=== PATIENT | male | born 1965 | race Caucasian/White ===

== ENCOUNTER 2024-11-21 00:49 | Emergency (ER) | payer MEDICAID, SELFPAY ==
[2024-11-21 00:49] VITALS: BMI 36.2
[2024-11-21 02:34] VITALS: BP 119/84; PULSE 75; RESP 17; TEMP 36.5; O2SAT 94
--- NOTE | 2024-11-21 02:59 | EDRME_ITS ---
Rapid Medical Screening Exam RME Arrival date/time: 11/21/24 00:49 Chief Complaint: Abdominal Pain Time Seen by Provider: 11/21/24 02:36 Vital signs: Vital Signs Temperature 97.7 F 11/21/24 02:34 Pulse Rate 75 11/21/24 02:34 Respiratory Rate 17 11/21/24 02:34 Blood Pressure 119/84 11/21/24 02:34 Pulse Oximetry (%) 94 L 11/21/24 02:34 Oxygen Delivery Method Room Air 11/21/24 02:34 Vital signs reviewed by provider: Yes RME Narrative: 59-year-old male presents to the ED with a complaint of abdominal swelling, nausea, right upper quadrant abdominal pain, lower extremity edema. He has a history of hepatitis. He was partially treated greater than 15 years ago but had to stop due to other infections including necrotizing fasciitis of the right upper extremity. 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 I have greeted and performed a focused initial assessment of this patient. A comprehensive ED assessment and evaluation of the patient, analysis of all test results, and completion of the medical decision making process will be conducted by additional ED providers.
--- NOTE | 2024-11-21 03:01 | XR_ITS ---
Examination: CT abdomen with intravenous contrast CT pelvis with intravenous contrast 2-D coronal reconstructions 2-D sagittal reconstructions Date and time of exam:November 21, 2024 0441 hours INDICATIONS: Onset generalized abdominal pain today COMPARISON: December 04, 2012. CTDI: vol (mGy) 19.5 DLP: (mGycm) 1161 Technique: Multiple axial sections of the abdomen and pelvis have been obtained. 64 slice high-resolution scanner used. 3 mm axial sections have been obtained, post intravenous injection 60 cc Isovue 370 2-D sagittal, coronal reconstructions obtained. Low dose protocols were performed. One or more of the following dose reduction techniques were used; automated exposure control, adjustment of the mA and/or KV according to patient size, use of iterative reconstruction technique. Findings: Liver is irregular in contour with fatty infiltration Suspicious for gallbladder wall thickening Spleen is not enlarged No pancreatic mass Mild renal parenchymal scar formation 25 mm fat-containing umbilical hernia Normal appendix No bowel obstruction Mild urinary bladder wall thickening No significant prostatomegaly Small fat-containing inguinal hernias IMPRESSION: Recommend hepatobiliary sonography follow-up to exclude cholecystitis Primary hepatocellular disease Mild cystitis pattern
--- NOTE | 2024-11-21 03:03 | XR_ITS ---
Examination: PA lateral chest 2 views TECHNIQUE: Upright PA and lateral chest 2 views Date and time: November 21, 2024 0529 hours Comparison November 28, 2023 INDICATION: Chest pain today. FINDINGS: Normal heart size The focal parenchymal disease in the right lower lobe noted on the November 28, 2023 exam is no longer identified No pneumonia or pulmonary edema currently Mild hyperexpansion Blunting of the left posterior costophrenic angle on the lateral view IMPRESSION: Mild hyperexpansion Suspicious for small left pleural effusion
[2024-11-21 03:46] LABS: Basophils # (Auto) 0.1 Thou/mm3 (0.0-0.2); Basophils % (Auto) 1 % (0-2.5); Eosinophils # (Auto) 0.2 Thou/mm3 (0.0-0.5); Eosinophils % (Auto) 2 % (0-10); Hematocrit 48.8 % (41.0-53.0); Hemoglobin 17.1 g/dL (13.5-16.0); Immature Granulocytes % (Auto) 0 % (0-0); Immature Granulocytes Auto 0.03 Thou/mm3 (0.00-0.00); Lymphocytes # (Auto) 2.8 Thou/mm3 (1.0-4.8); Lymphocytes % (Auto) 29 % (10-50); Mean Corpuscular Hemoglobin 32.9 pg (25.0-35.0); Mean Corpuscular Volume 94 fL (80-100); Monocytes # (Auto) 0.7 Thou/mm3 (0.0-0.8); Monocytes % (Auto) 7 % (0-12); Neutrophils # (Auto) 5.9 Thou/mm3 (1.8-7.7); Neutrophils % (Auto) 61 % (37-80); Nucleated Red Blood Cell % 0 /100 WBC (0); Platelet Count 380 Thou/mm3 (140-440); RDW Standard Deviation 43.9 fL (35.1-43.9); White Blood Count 9.6 Thou/mm3 (3.8-10.6)
[2024-11-21 04:00] VITALS: BP 136/94; PULSE 78; RESP 16; TEMP 36.4; O2SAT 94
[2024-11-21 04:03] LABS: Collection Type, Urine Clean Catch
[2024-11-21 04:10] LABS: Alanine Aminotransferase 24 U/L (10-49); Albumin, Serum 4.5 gm/dL (3.4-4.8); Albumin/Globulin Ratio 1.2 (1.2-2.2); Alkaline Phosphatase 100 U/L (46-116); Amylase 54 U/L (30-118); Anion Gap 9 (7-16); Aspartate Amino Transferase 27 U/L (0-34); B-Type Natriuretic Peptide < 20 pg/mL (0-100); BUN/Creatinine Ratio 7 Ratio (12-20); Bilirubin,Total 0.6 mg/dL (0.3-1.2); Blood Urea Nitrogen 6 mg/dL (9-23); Carbon Dioxide 25.3 mMol/L (20.0-31.0); Chloride 101 mMol/L (98-107); Creatinine (Component) 0.9 mg/dL (0.6-1.3); Globulin 3.7 gm/dL (2.3-3.5); Glucose 114 mg/dL (74-106); Lipase 25 U/L (12-53); Osmolality,Calculated 268 (275-295); Potassium 4.5 mMol/L (3.4-5.1); Sodium 135 mMol/L (136-145); Total Protein 8.2 gm/dL (5.7-8.2); eGFR > 60 See Note
[2024-11-21 04:12] LABS: Bilirubin,Urine Negative (Negative); Blood,Urine Negative (Negative); Clarity,Urine Clear (Clear/Hazy); Color,Urine Yellow (Lt Yel-Yel); Glucose, Urine Negative (Negative); Ketones,Urine Negative (Negative); Leukocyte Esterase,Urine Negative (Negative); Nitrite,Urine Negative (Negative); PH,Urine 5.5 (5.0-7.0); Protein,Urine Negative (Neg - Trace); RBC,Urine 1 /hpf (0-3); Specific Gravity,Urine 1.025 (1.001-1.035); Squamous Epithelial Cell,Urine < 1 /hpf (0-5); Urobilinogen,Urine Negative mg/dL (0.0-1.0); WBC,Urine 2 /hpf (0-5)
--- NOTE | 2024-11-21 04:20 | PC.NURSE ---
ASSUMED CARE OF PATIENT, PT ALERT/ORIENTED AND IN NO ACUTE DISTRESS, PT C/O OF INCREASED ABDOMINAL PAIN, SWELLING, AND NAUSEA. HX HEP C, PT APPEARS TO BE SOMEWHAT JAUNDICE, PT STATES HE IS RESTING COMFORTABLY NOW WITH MOTHER AT BEDSIDE, PT WAITING FOR CT RESULTS AND REVIEW BY ER MD, WILL CONTINUE WITH PLAN OF CARE
[2024-11-21 05:01] VITALS: BP 140/95; PULSE 75; RESP 18; O2SAT 95
--- NOTE | 2024-11-21 05:30 | PRELIM_ITS ---
CT scan of the abdomen and pelvis with intravenous contrast (axial sections with sagittal and coronal reformats) November 21, 2024 at 0441 hours Clinical History: Abdominal pain. Comparison: No prior study is available for comparison. Findings: The lung bases are clear. The pancreas, spleen, kidneys and adrenals are unremarkable. Mild irregular liver margins. The gallbladder is distended with prominent matos. No evidence of bowel obstruction. The appendix is within normal limits. There is no mesenteric or retroperitoneal adenopathy. The urinary bladder is unremarkable. There is no free fluid or free air. No acute fractures. Mild anterolisthesis of L5. Left femoral hardware is noted. Vascular calcifications. Impression: Distended gallbladder with prominent matos, if acute cholecystitis is clinically suspected consider correlation with right upper quadrant ultrasound. Possible cirrhosis. Report Electronically Signed By: Kaveh Norris 11/21/2024 5:30:48 AM [EST]
--- NOTE | 2024-11-21 06:29 | EDNOTE_ITS ---
ED General RME/HPI General Chief complaint: Abdominal Pain Stated complaint: SWELLING IN ABDOMEN AND FEET Time Seen by Provider: 11/21/24 02:36 Arrival date/time: 11/21/24 00:49 Limitations: no limitations RME / HPI RME / HPI narrative: 59-year-old male presents to the ED with a complaint of abdominal swelling, nausea, right upper quadrant abdominal pain, lower extremity edema. He has a history of hepatitis. He was partially treated greater than 15 years ago but had to stop due to other infections including necrotizing fasciitis of the right upper extremity. 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 I have greeted and performed a focused initial assessment of this patient. A comprehensive ED assessment and evaluation of the patient, analysis of all test results, and completion of the medical decision making process will be conducted by additional ED providers. DR. BLOUNT MAIN ED EVALUATION: 59 year old male presents to the Emergency Department with complaint of right upper abdominal pain onset 2-3 days ago. Pain is described as aching and rated moderate in severity. Patient also reports bilateral leg swelling. PMHx: Hepatitis C. Social Hx: Former heroin abuse, quit years ago . Related Data Home Medications ?Medication ?Instructions ?Recorded ?Confirmed methadone 10 mg/mL oral concentrate 80 mg PO QDAY 09/2911/29/23 amitriptyline 25 mg tablet 25 mg PO QDAY 11/29/2307/23 Previous Rx's ?Medication ?Instructions ?Recorded albuterol sulfate 90 mcg/actuation 2 inh inhalation Q4 H PRN shortness 11/29/23 aerosol inhaler of breath or wheezing #8.5 g willa amoxicillin 875 mg-potassium 1 tab PO BID #20 tabs 07/23 clavulanate 125 mg tablet Allergies Allergy/AdvReac Type Severity Reaction Status Date / Time No Known Allergies Allergy Verified 11/28/23 07:06 Review of Systems Review of Systems Systems Reviewed: All systems reviewed, normal except as documented Past Medical History Past Medical History GASTROINTESTINAL: Positive Gastrointestinal Disorders (LIVER DZ), Hepatitis (HEP C) and Pancreatitis MUSCULOSKELETAL: Positive Fractures PSYCHO/SOCIAL: Positive Recreational Drug Use Social History SMOKING STATUS: Never smoker SUBSTANCE USE: former substance user and heroin ALCOHOL: Never ED Exam General Limitations: Present no limitations General appearance: Present alert and in no apparent distress Head Head exam: Present atraumatic, normocephalic and normal inspection Eye Eye exam: Present normal appearance, PERRL and EOMI ENT ENT exam: Present normal exam, normal oropharynx and mucous membranes moist Neck Neck exam: Present normal inspection, full ROM and trachea midline Chest Chest inspection: Present normal inspection and symmetric chest wall rise Respiratory Respiratory exam: Present normal lung sounds bilaterally Cardiovascular Cardiovascular exam: Present regular rate, normal rhythm and normal heart sounds Abdominal Exam Abdominal exam: Present distention, tenderness (slight tenderness in the right upper quadrant) and normal bowel sounds; Absent rebound Extremities Exam Extremities exam: Present normal inspection, full ROM and pedal edema (1+) Back Exam Back exam: Present normal inspection and full ROM Neurological Exam Neurological exam: Present alert, oriented X3 and CN II-XII intact Psychiatric Psychiatric exam: Present normal affect and normal mood Skin Skin exam: Present warm, dry, intact and normal color Course Quality Measures none Orders Category Date Time Status CT Screening NOW Care 11/21/24 03:[address] Screening X1 Care 11/21/24 03:01 Active IV [Insert IV] NOW Care 11/21/24 03:04 Active NPO STAT Care 11/21/24 03:[address] abdomen pelvis w con Stat Exams 11/21/24 03:01 Completed US gall bladder Stat Exams 11/21/24 07:36 Completed XR chest 2V Stat Exams 11/21/24 03:03 Completed Amylase Stat Lab 11/21/24 03:26 Completed BNP [B-Type Natriuretic Peptide] Stat Lab 11/21/24 03:26 Completed CBC Stat Lab 11/21/24 03:26 Completed Comprehensive Metabolic Panel Stat Lab 11/21/24 03:26 Completed Lipase Stat Lab 11/21/24 03:26 Completed Urinalysis Stat Lab 11/21/24 03:45 Completed Famotidine Inj [Pepcid Inj] Med 11/21/24 07:38 Discontinued 20 mg IVP X1 ONE Ketorolac Inj [Toradol Inj] Med 11/21/24 07:38 Discontinued 15 mg IVP X1 ONE Milk Of Magnesia Susp [Mom Susp] Med 11/21/24 07:38 Discontinued 30 ml PO X1 ONE Vital Signs Vital signs: Vital Signs Temperature 97.7 F 11/21/24 02:34 Pulse Rate 75 11/21/24 02:34 Respiratory Rate 17 11/21/24 02:34 Blood Pressure 119/84 11/21/24 02:34 Pulse Oximetry (%) 94 L 11/21/24 02:34 Oxygen Delivery Method Room Air 11/21/24 02:34 Discharge Plan Plan Patient Disposition: HOME (Self Care) Patient condition on transfer: Stable Prescriptions/Referrals Prescriptions/Med Rec: No Action methadone 10 mg/mL Concentrate 80 mg PO QDAY amitriptyline 25 mg tablet 25 mg PO QDAY amoxicillin-pot clavulanate 875-125 mg tablet 1 tab PO BID Qty: 20 0RF albuterol sulfate 90 mcg/actuation HFA aerosol inhaler 2 inh inhalation Q4H PRN (Reason: shortness of breath or wheezing) Qty: 8.5 0RF Referrals: Alberto Meyer MD [Primary Care Provider] - In 1 week Problem List Clinical Impression: Abdominal pain Patient/Caregiver Discharge Instructions Education Materials: Abdominal Pain Additional Instructions: Please follow-up with your primary care physician within a week, consider referral GI specialist. Return to the Emergency Department as needed. Print Language: Turkmen Stand Alone Forms: Mariann Award Info., Patient Portal Info Letter [facility] Narrative [facility] hospital course: I, Meri Lelsie am scribing for and in the presence of Dr. Blount. US was negative, patient will be discharged. Discussed with patient to consider a GI specialist referral. Clinical Information Provided by patient Medical Records Reviewed [facility] Meds/Rx Considered, not Ordered None Labs/Rad/Tests considered, not Ordered None Chronic Illness/Social Conditions Add or document further as needed: PMHx: Hepatitis C. Social Hx: Former heroin abuse, quit years ago . Imaging Imaging interpretation: interpreted by mo Provider imaging interpretation(s): US is negative. Radiology reports / interpretation(s): Procedure(s): CT abdomen pelvis w con Accession Number(s): [id number] cc: Alberto Meyer MD; Zenon Bernstein MD; Maty Tolentino PA-C~ Examination: CT abdomen with intravenous contrast CT pelvis with intravenous contrast 2-D coronal reconstructions 2-D sagittal reconstructions Date and time of exam:November 21, 2024 0441 hours INDICATIONS: Onset generalized abdominal pain today COMPARISON: December 04, 2012. CTDI: vol (mGy) 19.5 DLP: (mGycm) 1161 Technique: Multiple axial sections of the abdomen and pelvis have been obtained. 64 slice high-resolution scanner used. 3 mm axial sections have been obtained, post intravenous injection 60 cc Isovue 370 2-D sagittal, coronal reconstructions obtained. Low dose protocols were performed. One or more of the following dose reduction techniques were used; automated exposure control, adjustment of the mA and/or KV according to patient size, use of iterative reconstruction technique. Findings: Liver is irregular in contour with fatty infiltration Suspicious for gallbladder wall thickening Spleen is not enlarged No pancreatic mass Mild renal parenchymal scar formation 25 mm fat-containing umbilical hernia Normal appendix No bowel obstruction Mild urinary bladder wall thickening No significant prostatomegaly Small fat-containing inguinal hernias IMPRESSION: Recommend hepatobiliary sonography follow-up to exclude cholecystitis Primary hepatocellular disease Mild cystitis pattern Dictated By: Zenon Bernstein MD Procedure(s): XR chest 2V Accession Number(s): [id number] cc: Alberto Meyer MD; Zenon Bernstein MD; Maty Tolentino PA-C~ Examination: PA lateral chest 2 views TECHNIQUE: Upright PA and lateral chest 2 views Date and time: November 21, 2024 0529 hours Comparison November 28, 2023 INDICATION: Chest pain today. FINDINGS: Normal heart size The focal parenchymal disease in the right lower lobe noted on the November 28, 2023 exam is no longer identified No pneumonia or pulmonary edema currently Mild hyperexpansion Blunting of the left posterior costophrenic angle on the lateral view IMPRESSION: Mild hyperexpansion Suspicious for small left pleural effusion Dictated By: Zenon Bernstein MD Procedure(s): US gall bladder Accession Number(s): [id number] cc: Atilio Blount MD; Alberto Meyer MD; Zenon Bernstein MD~ Examination: Abdomen sonogram, Limited Date and time of exam: November 21, 2024 0847 hrs. Indications: Right upper abdominal pain nausea vomiting beginning 4 days ago Technique: Real-time rai scale transabdominal sonographic images of the upper abdomen obtained. Findings: 3 cm gallstone Normal gallbladder wall Common bile duct enlarged 0.70 cm but no stones Pancreas obscured by bowel gas Liver 19.1 cm no liver lesions Normal hepatopedal portal venous flow Patent IVC Impression: Cholelithiasis, negative for cholecystitis No common bile duct stones noted Hepatomegaly no focal liver lesions Dictated By: Zenon Bernstein MD Medication Administration(s) Medication Administration History Discontinued Medications Famotidine (Famotidine Inj 10 Mg/Ml Vial 2 Ml) 20 mg IVP X1 ONE Stop: 11/21/24 07:39 Last Admin: 11/21/24 08:29 Dose: 20 mg Documented By: MARTHA Ketorolac Tromethamine (Ketorolac Inj 30 Mg/Ml Vial) 15 mg IVP X1 ONE Stop: 11/21/24 07:39 Last Admin: 11/21/24 08:33 Dose: 15 mg Documented By: MARTHA Magnesium Hydroxide (Milk Of Magnesia Susp 30 Ml Udc) 30 ml PO X1 ONE; Protocol Stop: 11/21/24 07:39 Last Admin: 11/21/24 08:30 Dose: 30 ml Documented By: MARTHA Diagnosis Differential diagnosis: gallstones, pancreatitis, gastritis Most likely dx, and/or detailed dx discussion: Abdominal pain Dispositon Disposition: Discharge Home
[2024-11-21 06:54] VITALS: BP 135/92; PULSE 68; RESP 18; O2SAT 94
--- NOTE | 2024-11-21 07:36 | XR_ITS ---
Examination: Abdomen sonogram, Limited Date and time of exam: November 21, 2024 0847 hrs. Indications: Right upper abdominal pain nausea vomiting beginning 4 days ago Technique: Real-time rai scale transabdominal sonographic images of the upper abdomen obtained. Findings: 3 cm gallstone Normal gallbladder wall Common bile duct enlarged 0.70 cm but no stones Pancreas obscured by bowel gas Liver 19.1 cm no liver lesions Normal hepatopedal portal venous flow Patent IVC Impression: Cholelithiasis, negative for cholecystitis No common bile duct stones noted Hepatomegaly no focal liver lesions
[2024-11-21 07:39] VITALS: BP 140/90; PULSE 67; RESP 19; TEMP 36.5; O2SAT 94
[2024-11-21] MEDS: FAMOTIDINE INJ 10 MG/ML VIAL 2 ML 20 MG IVP (08:29)
[2024-11-21] MEDS: Milk Of Magnesia Susp 30 ML UDC PO (08:30)
[2024-11-21] MEDS: KETOROLAC INJ 30 MG/ML VIAL 15 MG IVP (08:33)
--- NOTE | 2024-11-21 08:42 | PC.NURSE ---
PT TAKEN TO ULTRASOUND
[2024-11-21 11:50] VITALS: BP 150/89; PULSE 65; RESP 14; O2SAT 93
== END 2024-11-21 11:51 | disposition home or self-care (01) ==
PROVIDERS: Physician Assistant; Emergency Provider Emergency Medicine; PCP Family Medicine
DX: R10.11 Right upper quadrant pain (principal)
CPT/HCPCS: 36415; 71046; 74177; 76705; 80053; 81001; 82150; 83690; 83880; 85025; 96374; 96375; 99285; A4649; J1885; J3490; Q9967; A9270

== ENCOUNTER 2025-01-18 06:45 | Day surgery (SDC) | payer MEDICAID, SELFPAY ==
--- NOTE | 2025-01-14 06:47 | EKG_ITS ---
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
[2025-01-14 09:47] VITALS: BMI 38.0
[2025-01-14 12:00] LABS: Basophils # (Auto) 0.1 Thou/mm3 (0.0-0.2); Basophils % (Auto) 1 % (0-2.5); Eosinophils # (Auto) 0.3 Thou/mm3 (0.0-0.5); Eosinophils % (Auto) 3 % (0-10); Hematocrit 50.2 % (41.0-53.0); Hemoglobin 17.4 g/dL (13.5-16.0); Immature Granulocytes Auto 0.02 Thou/mm3 (0.00-0.00); Lymphocytes # (Auto) 2.9 Thou/mm3 (1.0-4.8); Lymphocytes % (Auto) 37 % (10-50); Mean Corpuscular HGB Conc 34.7 g/dl (31.0-37.0); Mean Corpuscular Hemoglobin 32.2 pg (25.0-35.0); Mean Corpuscular Volume 93 fL (80-100); Monocytes # (Auto) 0.8 Thou/mm3 (0.0-0.8); Monocytes % (Auto) 10 % (0-12); Neutrophils # (Auto) 3.9 Thou/mm3 (1.8-7.7); Neutrophils % (Auto) 49 % (37-80); Nucleated Red Blood Cell # 0.00 Thou/mm3 (0.00-0.00); Nucleated Red Blood Cell % 0 /100 WBC (0); Platelet Count 311 Thou/mm3 (140-440); RDW Standard Deviation 43.8 fL (35.1-43.9); Red Blood Count 5.41 Miln/mm3 (4.50-5.90); White Blood Count 8.0 Thou/mm3 (3.8-10.6)
[2025-01-14 12:26] LABS: Alanine Aminotransferase 21 U/L (10-49); Albumin, Serum 4.2 gm/dL (3.4-4.8); Albumin/Globulin Ratio 1.2 (1.2-2.2); Alkaline Phosphatase 101 U/L (46-116); Anion Gap 11 (7-16); Aspartate Amino Transferase 24 U/L (0-34); BUN/Creatinine Ratio 13 Ratio (12-20); Bilirubin,Total 0.5 mg/dL (0.3-1.2); Blood Urea Nitrogen 10 mg/dL (9-23); Calcium 9.3 mg/dL (8.3-10.6); Calcium (Corrected) 9.3 mg/dL (8.5-10.1); Carbon Dioxide 26.7 mMol/L (20.0-31.0); Chloride 100 mMol/L (98-107); Creatinine (Component) 0.8 mg/dL (0.6-1.3); Estimated Creatinine Clearance 123.8 mL/min (>60); Globulin 3.6 gm/dL (2.3-3.5); Glucose 93 mg/dL (74-106); Osmolality,Calculated 274 (275-295); Potassium 4.4 mMol/L (3.4-5.1); Sodium 138 mMol/L (136-145); Total Protein 7.8 gm/dL (5.7-8.2); eGFR > 60 See Note
[2025-01-14 12:30] LABS: INR 1.0 (0.9-1.3); Prothrombin Time 10.8 Seconds (9.0-12.2)
--- NOTE | 2025-01-17 15:00 | SUR.PREOP ---
Pt was notified to come in tomorrow at 0700 for surgery.
[2025-01-18] VITALS (8 sets, daily range): BP systolic 96–142; BP diastolic 73–105; PULSE 78–99; RESP 12–18; TEMP 36.6–36.9; O2SAT 93–95; BMI 39.8
--- NOTE | 2025-01-18 09:31 | SUR.PHASEI ---
pt received from OR in recovery bay 2. pt obtunded, breathing unlabored on oxymask 8l. v/s stable. pt dressing to abd dermabond x4 cdi. report received from Altagracia CARR and Dr. Horta.
--- NOTE | 2025-01-18 09:33 | ESOP_ITS ---
Date of Procedure 01/18/25 Pre Op Diagnosis Symptomatic cholelithiasis Post Op Diagnosis Cholelithiasis with cholecystitis Procedure Laparoscopic cholecystectomy Findings Distended gallbladder with large gallstones and chronic cholecystitis. Anterior surface of the liver was smooth without nodules or any lesions, no evidence of ascites Procedure Description Patient was brought into the operating room in supine position. After administration of general endotracheal anesthesia abdomen was prepped and draped in standard surgical manner. A Veress needle was inserted through the umbilicus and pneumoperitoneum was obtained up to 15 mmHg. The Veress needle was then removed, a 5 mm supraumbilical incision was made and the 5mm trocar was inserted. Laparoscopic camera was placed. Under direct visualization a laparoscopic camera a 10 mm trocar was placed in subxiphoid and two 5 mm trocars placed in right upper quadrant. There was no evidence of ascites. Anterior surface of the liver was smooth without nodules or any lesions. The gallbladder was identified and was noted to be moderately distended with large gallstone and chronic cholecystitis. It was retracted cephalad and laterally. Dissection started near the infundibulum of gallbladder where cystic duct and gallbladder junction clearly identified. The cystic duct was circumferentially dissected off the peritoneum and surrounding inflammatory tissue. The critical view of safety was clearly demonstrated. Cystic duct was then divided between 2 endoclips proximally and one distally. The cystic artery was similarly dissected and divided. The gallbladder was then from the liver bed using electrocautery. The gallbladder was then placed inside an Endo Catch and removed from the abdomen utilizing subxiphoid trocar site. The area was copiously and thoroughly washed and irrigated, all the fluid was suctioned and the suction fluid returned clear. Hemostasis achieved using electrocautery. Endoclips noted be in place and intact without any bleeding or any leakage. Hemostasis was adequate and satisfactory. The subxiphoid trocar sites fascial defect was closed with 0 Vicryl using Endo Closure device. Instruments and trocars removed, pneumoperitoneum was evacuated and the incisions closed with 4- 0 Monocryl in subcuticular fashion. Instrument needle and sponge counts were all reported to be correct X2. Patient tolerated the procedure well, was extubated, breathing spontaneously and without difficulty and was transferred to postanesthesia care in stable condition. Anesthesia GETA and local Pathology / specimen Other (Gallbladder and contents) Estimated Blood Loss 10 Condition Stable Disposition PACU Surgeon Paul Smiley MD Surgical Staff Operation Date: 01/18/25 09:00 Case Staff Anesthesiologist: Jose Horta RN First Assistant: Reyna Camacho
--- NOTE | 2025-01-18 10:14 | SUR.PHASEII ---
pt able to tolerate oral fluids without difficulty swallowing or nausea/vomiting.
--- NOTE | 2025-01-18 10:51 | SUR.PHASEII ---
pt awake and alert, breathing unlabored on room air. v/s stable. pt dressing to abd dermabond x4 cdi. pt able to ambulate to wheelchair with steady gait. d/c instructions given with hardy Rincon in room, all questions answered. pt d/c via wheelchair with all belongings.
== END 2025-01-18 10:51 | disposition home or self-care (01) ==
PROVIDERS: PCP Family Medicine; Referring Provider Surgery; Visit Provider Surgery
PROC: 0FT44ZZ Resection of Gallbladder, Percutaneous Endoscopic Approach (ICD-10-PCS; CPT 47562; principal; 2025-01-18 08:45)
DX: K80.10 Calculus of gallbladder with chronic cholecystitis without obstruction (principal); Z01.810 Encounter for preprocedural cardiovascular examination
CPT/HCPCS: 47562; 36415; 80053; 85025; 85610; 93005; A4217; A4649; J0131; J0694; J1100; J1885; J2250; J2371; J2405; J2704; J3010; J3490

== ENCOUNTER 2025-02-08 00:19 | Emergency (ER) | payer MEDICAID, SELFPAY ==
[2025-02-08 00:20] VITALS: PULSE 68; O2SAT 98
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
[2025-02-08 00:31] VITALS: BP 116/79; PULSE 73; RESP 24; TEMP 36.4; O2SAT 97
--- NOTE | 2025-02-08 00:35 | EKG_ITS ---
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
--- NOTE | 2025-02-08 00:36 | XR_ITS ---
Examination: AP chest single view Technique one AP portable upright chest single view Date and time: February 08, 2025 0046 hours Comparison November 21, 2024 INDICATIONS: Heart alert, chest pain today FINDINGS: Normal heart size Mild vascular congestion. No lobar pneumonia or pulmonary edema IMPRESSION: Mild vascular congestion.
[2025-02-08] MEDS: SODIUM CHLORIDE 0.9% 500 ML 500 ML 1000 ML IV (00:52)
[2025-02-08] MEDS: ASPIRIN 81 MG CHEW 162 MG PO (00:53)
[2025-02-08] MEDS: MORPHINE SULF INJ 10 MG/ML VIAL 4 MG IVP (00:53)
[2025-02-08] MEDS: ONDANSETRON INJ 2 MG/ML INJ 2 ML 4 MG IVP (00:54)
[2025-02-08 00:55] LABS: Basophils # (Auto) 0.1 Thou/mm3 (0.0-0.2); Basophils % (Auto) 1 % (0-2.5); Eosinophils # (Auto) 0.3 Thou/mm3 (0.0-0.5); Eosinophils % (Auto) 3 % (0-10); Hematocrit 50.5 % (41.0-53.0); Hemoglobin 17.4 g/dL (13.5-16.0); Immature Granulocytes Auto 0.02 Thou/mm3 (0.00-0.00); Lymphocytes # (Auto) 6.1 Thou/mm3 (1.0-4.8); Lymphocytes % (Auto) 57 % (10-50); Mean Corpuscular HGB Conc 34.5 g/dl (31.0-37.0); Mean Corpuscular Hemoglobin 33.4 pg (25.0-35.0); Mean Corpuscular Volume 97 fL (80-100); Monocytes # (Auto) 1.2 Thou/mm3 (0.0-0.8); Monocytes % (Auto) 11 % (0-12); Neutrophils # (Auto) 3.0 Thou/mm3 (1.8-7.7); Neutrophils % (Auto) 28 % (37-80); Nucleated Red Blood Cell # 0.00 Thou/mm3 (0.00-0.00); Nucleated Red Blood Cell % 0 /100 WBC (0); Platelet Count 332 Thou/mm3 (140-440); RDW Standard Deviation 44.8 fL (35.1-43.9); Red Blood Count 5.21 Miln/mm3 (4.50-5.90); White Blood Count 10.8 Thou/mm3 (3.8-10.6)
[2025-02-08] MEDS: HEPARIN SOD INJ 5000 UNIT/ML VIAL 4000 UNIT IV (00:56)
[2025-02-08] MEDS: Heparin/D5w 25K 250 ML Ivpb 25,000 UNIT/250 ML BAG 10.002 UNIT IV (00:58)
--- NOTE | 2025-02-08 01:10 | PC.NURSE ---
reach at bedside report given to oseas gould
--- NOTE | 2025-02-08 01:15 | PC.NURSE ---
[facility] contacted for transfer accepts at 0100. MD [facility] ED to ED reach initiated for transport. Pt being transferrred for acute TN
--- NOTE | 2025-02-08 01:26 | PC.NURSE ---
report called to lexus mcbride from [facility]
[2025-02-08 01:29] LABS: INR 1.0 (0.9-1.3); Partial Thromboplastin Time 29.7 Seconds (22.0-36.0); Prothrombin Time 10.9 Seconds (9.0-12.2)
[2025-02-08 01:33] LABS: Alanine Aminotransferase 21 U/L (10-49); Albumin, Serum 4.2 gm/dL (3.4-4.8); Albumin/Globulin Ratio 1.3 (1.2-2.2); Alkaline Phosphatase 105 U/L (46-116); Anion Gap 9 (7-16); Aspartate Amino Transferase 24 U/L (0-34); B-Type Natriuretic Peptide < 20 pg/mL (0-100); BUN/Creatinine Ratio 13 Ratio (12-20); Bilirubin,Total 0.6 mg/dL (0.3-1.2); Blood Urea Nitrogen 12 mg/dL (9-23); Calcium 9.4 mg/dL (8.3-10.6); Calcium (Corrected) 9.4 mg/dL (8.5-10.1); Carbon Dioxide 27.8 mMol/L (20.0-31.0); Chloride 102 mMol/L (98-107); Creatinine (Component) 0.9 mg/dL (0.6-1.3); Globulin 3.2 gm/dL (2.3-3.5); Glucose 115 mg/dL (74-106); LDH (Lactate Dehydrogenase) 164 U/L (120-246); Magnesium 1.9 mg/dL (1.6-2.6); Osmolality,Calculated 278 (275-295); Potassium 3.7 mMol/L (3.4-5.1); Sodium 139 mMol/L (136-145); Total Protein 7.4 gm/dL (5.7-8.2); Troponin I < 0.020 ng/mL (0.0-0.045); eGFR > 60 See Note
[2025-02-08 04:48] LABS: Path Review Blood Smear Sent to Pathologist
== END 2025-02-08 01:28 | disposition short-term general hospital (02) ==
PROVIDERS: Emergency Provider Emergency Medicine; PCP Family Medicine
DX: I21.19 ST elevation (STEMI) myocardial infarction involving other coronary artery of inferior wall (principal)
CPT/HCPCS: 36415; 71045; 80053; 80307; 81001; 83615; 83735; 83880; 84484; 85025; 85610; 85730; 93005; 96374; 96375; 99283; J1644; J2270; J2405; J7999; A9270

== ENCOUNTER 2025-02-22 23:36 | Emergency (ER) | payer MEDICAID, SELFPAY ==
[2025-02-22 23:52] VITALS: PULSE 84; RESP 20; O2SAT 99; BMI 34.8
[2025-02-22 23:55] VITALS: BP 136/92; PULSE 91; RESP 16; TEMP 36.6; O2SAT 96
--- NOTE | 2025-02-23 00:44 | PD.EDCHEST ---
ED Chest Pain RME/HPI General Chief Complaint: Chest Pain Stated Complaint: CHEST PAIN Time Seen by Provider: 02/23/25 00:56 Arrival date/time: 02/22/25 23:36 RME / HPI RME / HPI narrative: Dr. 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 Reports aching substernal chest pain of intermittent nature lasting 10-15 minutes. Related Data Home Medications ?Medication ?Instructions ?Recorded ?Confirmed amitriptyline 25 mg tablet 25 mg PO HS 11/29/23 01/18/25 Previous Rx's ?Medication ?Instructions ?Recorded docusate sodium 100 mg capsule 100 mg PO BID #30 caps 01/18/25 (Colace) hydrocodone 5 mg-acetaminophen 325 1 tab PO Q6H PRN pain (scale score 01/18/25 mg tablet 7-10) #10 tabs ibuprofen 600 mg tablet 600 mg PO Q8H PRN pain (scale 01/18/25 score 4-6) #15 tabs diazepam 5 mg tablet (Valium) 5 mg PO BID PRN anxiety #10 tabs 02/23/25 Allergies Allergy/AdvReac Type Severity Reaction Status Date / Time No Known Allergies Allergy Verified 01/18/25 07:14 Review of Systems Review of Systems Systems Reviewed: All systems reviewed, normal except as documented ED Exam Narrative Physical exam: GENERAL APPEARANCE: alert and oriented x 4, slightly apprehensive, well-developed, well-nourished, no acute distress VITALS: All vitals were reviewed and the pulse ox is 96% on room air, which is normal according to my interpretation. HEENT: Normocephalic, atraumatic; pupils equal, round, reactive to light; EOMI; mucous membranes pink, moist; oropharynx clear NECK: Supple, no JVD LUNGS: CTABL; no wheezes, no rales, no rhonchi HEART: Regular rate, regular rhythm; normal S1, S2; no murmurs ABDOMEN: non distended; soft, no tenderness BACK: no CVA tenderness EXTREMITIES: atraumatic; no edema NEUROLOGIC: awake; alert and oriented x4; cranial nerves II-XII grossly intact; no focal sensory or motor deficits PSYCHIATRIC: appropriate mood and affect SKIN: warm, dry, normal color; no rashes Course Course Course Narrative: CXR is ordered for determining the etiology of chest pain. Quality Measures none Orders Category Date Time Status EKG (ED ONLY) *Do not use* NOW Care 02/23/25 01:02 Completed EKG (ED Only) Stat Exams 02/23/25 01:02 Draft XR chest 1V portable Stat Exams 02/23/25 01:25 Completed B-Type Natriuretic Peptide Stat Lab 02/23/25 00:13 Completed CBC Stat Lab 02/23/25 00:13 Completed Comprehensive Metabolic Panel Stat Lab 02/23/25 00:13 Completed D-Dimer Stat Lab 02/23/25 00:13 Completed Prothrombin Time with INR Stat Lab 02/23/25 00:13 Completed Troponin I Stat Lab 02/23/25 00:13 Completed Troponin I Stat Lab 02/23/25 03:54 Completed Aspirin Med 02/23/25 01:00 Discontinued 325 mg PO X1 ONE Nitroglycerin Oint 2% [Nitro-paste Oint 2%] Med 02/23/25 01:00 Discontinued 1 inch TOP X1 ONE Vital Signs Vital signs: Vital Signs Temperature 97.9 F 02/22/25 23:55 Pulse Rate 91 02/22/25 23:55 Respiratory Rate 16 02/22/25 23:55 Blood Pressure 136/92 H 02/22/25 23:55 Pulse Oximetry (%) 96 02/22/25 23:55 Oxygen Delivery Method Room Air 02/22/25 23:55 Chest Pain MDM Narrative MDM Narrative:: Scribe Attestation: 02/23/25 Fanny Ellington am scribing for and in the presence of Dr. William. 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 Reports aching substernal chest pain of intermittent nature lasting 10-15 minutes. Please see PE findings. Lab markers show marginally elevated WBC count 11, mild hemoconcentration with Hgb 16.3. Coagulation profile within normal limits. D-dimer undetected. Chemistries are unremarkable, including serial troponins. After an extended period of time, patient is considered stable for discharge. 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 Dx: nonspecific chest pain, generalized anxiety. Patient data External records reviewed:: [facility] previous records (Per chart review, patient was seen here on 02/08/25 for STEMI.) and EMS form Clinical information provided by:: patient Social determinants that could affect healthcare access:: none Patient has the following chronic illnesses:: Ht disease How is presenting disease/condition affected by chronic disease/condition?: uneffected by Evaluation data The following diagnostics were reviewed and interpreted by me:: lab results, radiology exam(s) and EKG tracing(s) Lab and/or radiology exams considered but not ordered:: none Interpretation Summary: CXR is negative for infiltrates, effusions, or pneumothorax, according to my interpretation. EKG done at 0127, sinus rhythm, rate of 67, no acute pathological ST segment changes, no ectopy, normal intervals, left axis deviation, evidence of possible septal wall infarct, according to my interpretation. Medications / Prescriptions Medications or Prescriptions considered but not ordered:: none Medication administrations:: Medication Administration History Discontinued Medications Aspirin (Aspirin 325 Mg Tablet) 325 mg PO X1 ONE Stop: 02/23/25 01:01 Last Admin: 02/23/25 01:13 Dose: 325 mg Documented By: ALEX Nitroglycerin (Nitroglycerin Oint 2% 1 Inch Packet) 1 inch TOP X1 ONE Stop: 02/23/25 01:01 Last Admin: 02/23/25 01:13 Dose: 1 inch Documented By: ALEX see above Consultations Consultation(s) initiated? (list below): No Diagnosis Chest Pain Differential Diagnosis: atypical chest pain, st elevation myocardial infarction, costochondritis and other (NSTEMI) Most likely diagnosis given after review of the tests above:: see clinical impression below Admission Indicated Admission indicated?: not indicated Admission Request Was there a request for admission?: No Disposition Plan Disposition Plan: Discharge Discharge Attestation Discharge Attestation: The patient and all family members were given an opportunity to ask questions and understood the discharge instructions. Discharge instructions specifically effects, indications for sooner follow up or return to the emergency department, and the expected course of current diagnosis. Patient condition: Stable Discharge Plan Plan Patient Disposition: HOME (Self Care) Discharge Disposition comment: Stable Prescriptions/Referrals Prescriptions/Med Rec: New diazepam [Valium] 5 mg tablet 5 mg PO BID PRN (Reason: anxiety) Qty: 10 0RF No Action amitriptyline 25 mg tablet 25 mg PO HS docusate sodium [Colace] 100 mg capsule 100 mg PO BID Qty: 30 0RF ibuprofen 600 mg tablet 600 mg PO Q8H PRN (Reason: pain (scale score 4-6)) Qty: 15 0RF hydrocodone-acetaminophen 5-325 mg tablet 1 tab PO Q6H MDD 4 PRN (Reason: pain (scale score 7-10)) Qty: 10 0RF Referrals: Mert Quinones MD [Primary Care Provider] - In 1 week Problem List Clinical Impression: Nonspecific chest pain, Anxiety, generalized Patient/Caregiver Discharge Instructions Discharge Activity: activity as tolerated Other Activity Instructions:: Maintain adequate rest, medication as directed. Education Materials: ED Chest Pain, Uncertain Cause Additional Instructions: Continue current medications as directed. Follow-up with ordnance engineering technician as anticipated. Return if worse Print Language: Slovenian Stand Alone Forms: Mariann Award Info., Patient Portal Info Letter
--- NOTE | 2025-02-23 01:02 | EKG_ITS ---
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
[2025-02-23 01:13] VITALS: BP 136/96; PULSE 74
[2025-02-23] MEDS: NITROGLYCERIN OINT 2% 1 INCH PACKET TOP (01:13)
--- NOTE | 2025-02-23 01:25 | XR_ITS ---
Examination: AP chest single view TECHNIQUE: AP portable upright chest single view Date and time: February 23, 2025, 0128 hours, comparison February 08, 2025 INDICATIONS: Shortness of breath 2 days chest pain FINDINGS: Normal heart size. Mild accentuation of interstitial markings at the lung bases. No lobar pneumonia or pulmonary edema. Prominent osteopenia IMPRESSION: Basilar bronchitis pattern
[2025-02-23 01:29] LABS: Basophils # (Auto) 0.1 Thou/mm3 (0.0-0.2); Basophils % (Auto) 1 % (0-2.5); Eosinophils # (Auto) 0.3 Thou/mm3 (0.0-0.5); Eosinophils % (Auto) 3 % (0-10); Hematocrit 46.5 % (41.0-53.0); Hemoglobin 16.3 g/dL (13.5-16.0); Immature Granulocytes Auto 0.03 Thou/mm3 (0.00-0.00); Lymphocytes # (Auto) 2.1 Thou/mm3 (1.0-4.8); Lymphocytes % (Auto) 19 % (10-50); Mean Corpuscular HGB Conc 35.1 g/dl (31.0-37.0); Mean Corpuscular Hemoglobin 32.7 pg (25.0-35.0); Mean Corpuscular Volume 93 fL (80-100); Monocytes # (Auto) 0.9 Thou/mm3 (0.0-0.8); Monocytes % (Auto) 8 % (0-12); Neutrophils # (Auto) 7.7 Thou/mm3 (1.8-7.7); Neutrophils % (Auto) 69 % (37-80); Nucleated Red Blood Cell # 0.00 Thou/mm3 (0.00-0.00); Nucleated Red Blood Cell % 0 /100 WBC (0); Platelet Count 313 Thou/mm3 (140-440); RDW Standard Deviation 42.1 fL (35.1-43.9); Red Blood Count 4.99 Miln/mm3 (4.50-5.90); White Blood Count 11.0 Thou/mm3 (3.8-10.6)
[2025-02-23 01:44] LABS: INR 1.0 (0.9-1.3); Prothrombin Time 10.8 Seconds (9.0-12.2)
[2025-02-23 01:46] LABS: Alanine Aminotransferase 29 U/L (10-49); Albumin, Serum 4.3 gm/dL (3.4-4.8); Albumin/Globulin Ratio 1.3 (1.2-2.2); Alkaline Phosphatase 111 U/L (46-116); Anion Gap 8 (7-16); Aspartate Amino Transferase 25 U/L (0-34); BUN/Creatinine Ratio 15 Ratio (12-20); Bilirubin,Total 0.5 mg/dL (0.3-1.2); Blood Urea Nitrogen 12 mg/dL (9-23); Calcium 9.9 mg/dL (8.3-10.6); Calcium (Corrected) 9.9 mg/dL (8.5-10.1); Carbon Dioxide 24.6 mMol/L (20.0-31.0); Chloride 103 mMol/L (98-107); Creatinine (Component) 0.8 mg/dL (0.6-1.3); D-Dimer < 250 ng/mL (<600); Estimated Creatinine Clearance 125.7 mL/min (>60); Globulin 3.2 gm/dL (2.3-3.5); Glucose 102 mg/dL (74-106); Osmolality,Calculated 271 (275-295); Potassium 4.4 mMol/L (3.4-5.1); Sodium 136 mMol/L (136-145); Total Protein 7.5 gm/dL (5.7-8.2); Troponin I < 0.002 ng/mL (0.0-0.045); eGFR > 60 See Note
[2025-02-23 01:49] LABS: B-Type Natriuretic Peptide < 20 pg/mL (0-100)
[2025-02-23 04:22] LABS: Troponin I < 0.002 ng/mL (0.0-0.045)
[2025-02-23 04:39] VITALS: BP 112/90; PULSE 68; RESP 14; TEMP 36.5; O2SAT 97
== END 2025-02-23 04:41 | disposition home or self-care (01) ==
PROVIDERS: Emergency Provider Emergency Medicine; PCP Family Medicine
DX: F41.1 Generalized anxiety disorder (principal); R07.9 Chest pain, unspecified; R06.02 Shortness of breath; R94.31 Abnormal electrocardiogram [ECG] [EKG]; I21.9 Acute myocardial infarction, unspecified; Z95.5 Presence of coronary angioplasty implant and graft
CPT/HCPCS: 36415; 71045; 80053; 83880; 84484; 85025; 85379; 85610; 93005; 99284; A9270

== ENCOUNTER 2025-03-03 12:28 | Inpatient (IN) | payer MEDICAID, SELFPAY ==
[2025-03-03] VITALS (15 sets, daily range): BP systolic 63–119; BP diastolic 52–79; PULSE 68–103; RESP 13–31; TEMP 36.5–39.4; O2SAT 88–100; BMI 48.7
--- NOTE | 2025-03-03 12:37 | EKG_ITS ---
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
--- NOTE | 2025-03-03 13:04 | XR_ITS ---
Examination: AP chest single view Technique one AP portable upright chest single view Date and time: March 03, 2025 1331 hours, comparison February 23, 2025 INDICATIONS: Sepsis protocol. FINDINGS: Early pneumonia left base obscuring detail left hemidiaphragm. Normal heart size No pulmonary edema Severe osteopenia IMPRESSION: Early pneumonia left base
--- NOTE | 2025-03-03 13:06 | PD.EDCHEST ---
ED Chest Pain RME/HPI General Chief Complaint: Chest Pain Stated Complaint: CHEST PAIN Time Seen by Provider: 03/03/25 12:57 Arrival date/time: 03/03/25 12:28 RME / HPI RME / HPI narrative: 59-year-old male patient with significant history of CAD, status post stent placement about 3 weeks ago, came in for evaluation regarding left-sided chest pain. Patient has been having left-sided chest pain, since 20 minutes prior to ER visit described as sharp pain, severity moderate. Associated with shortness of breath. Patient also complained of nonproductive cough for few days. Patient was also noted to be tachycardic and febrile. Oxygen saturation 87% on room air. Sepsis alert was initiated right away. Patient denies any other complaints. Was given aspirin, Nitropaste and nitro sublingual by EMS on the way to the emergency room. Related Data Home Medications ?Medication ?Instructions ?Recorded ?Confirmed amitriptyline 25 mg tablet 25 mg PO HS 11/29/23 01/18/25 Previous Rx's ?Medication ?Instructions ?Recorded docusate sodium 100 mg capsule 100 mg PO BID #30 caps 01/18/25 (Colace) hydrocodone 5 mg-acetaminophen 325 1 tab PO Q6H PRN pain (scale score 01/18/25 mg tablet 7-10) #10 tabs ibuprofen 600 mg tablet 600 mg PO Q8H PRN pain (scale 01/18/25 score 4-6) #15 tabs diazepam 5 mg tablet (Valium) 5 mg PO BID PRN anxiety #10 tabs 02/23/25 Allergies Allergy/AdvReac Type Severity Reaction Status Date / Time No Known Allergies Allergy Verified 01/18/25 07:14 Review of Systems Review of Systems Narrative Review of Systems: Review of system reviewed and within normal limits except mentioned in HPI ED Exam Narrative Physical exam: VITAL SIGNS: Reviewed. GENERAL APPEARANCE: Alert and interactive, follows commands, no acute distress, HEAD AND FACE: Non-traumatic. ENT: PERRL, pink conjunctivitis, eyelid no trauma, Mucous membrane moist. NECK: Supple, nontender, no nuchal rigidity. CHEST: Left chest tenderness, no crepitus, no paradoxical movement, no retractions. LUNGS: Clear, well ventilated, symmetric, no rales, no wheezing, no ronchi, no stridor, good breath sounds bilaterally. HEART: Regular rate, regular rhythm, no murmur, no gallops. ABDOMEN: Soft, positive bowel sounds, nondistended, no guarding, nontender, no rebound, no masses, RECTAL: Deferred. GENITAL: Deferred. NEUROLOGICAL: Gross motor function intact sensory function intact, Appropriate for age. MUSCULOSKELETAL: low back nontender, full range of motion. EXTREMITIES: Nontender, full range of motion. SKIN: Color pink, dry, no rash, no lacerations, no abrasions, no contusions. LYMPHATICS: Deferred. Course Quality Measures none Orders Category Date Time Status Furniture Rental Consultant STAT Care 03/03/25 13:03 Active Continuous Pulse Oximetry STAT Care 03/03/25 13:03 Completed EKG (ED ONLY) *Do not use* NOW Care 03/03/25 12:37 Completed EKG (ED ONLY) *Do not use* NOW Care 03/03/25 13:03 Completed In and Out Catheter X1PRN Care 03/03/25 13:03 Active Insert IV NOW Care 03/03/25 13:03 Completed NPO STAT Care 03/03/25 13:03 Active Strict Intake and Output Routine Care 03/03/25 13:03 Ordered EKG (ED Only) Stat Exams 03/03/25 12:37 Draft EKG (ED Only) Stat Exams 03/03/25 13:03 Ordered XR chest 1V SEPSIS PROTOCOL Stat Exams 03/03/25 13:04 Completed B-Type Natriuretic Peptide Stat Lab 03/03/25 13:20 Completed Blood Culture (Lab) Stat Lab 03/03/25 13:20 Received CBC Stat Lab 03/03/25 13:20 Completed Comprehensive Metabolic Panel Stat Lab 03/03/25 13:20 Completed LDH (Lactate Dehydrogenase) Stat Lab 03/03/25 13:20 Completed Lactate (Lactic Acid) Stat Lab 03/03/25 13:20 Results Lipase Stat Lab 03/03/25 13:20 Completed Magnesium Stat Lab 03/03/25 13:20 Completed Partial Thromboplastin Time Stat Lab 03/03/25 13:20 Completed Phosphorous Stat Lab 03/03/25 13:20 Completed Procalcitonin Stat Lab 03/03/25 13:20 Completed Prothrombin Time with INR Stat Lab 03/03/25 13:20 Completed Troponin I Stat Lab 03/03/25 13:20 Completed Urinalysis, C/S if Indicated Stat Lab 03/03/25 13:12 Completed Acetaminophen Tab [Tylenol ES Tab] Med 03/03/25 14:26 Discontinued 1,000 mg PO X1 ONE Azithromycin Inj [Zithromax Inj] 500 mg Med 03/03/25 15:32 Active Sodium Chloride 0.9% 250 ml [Ns] 250 ml IV X1 Magnesium Sulfate 2 GM Ivpb [Magnesium Sulfate Ivpb] Med 03/03/25 15:39 Active 2 gm in 50 ml IV X1 Morphine* Inj Med 03/03/25 13:05 Discontinued 4 mg IVP X1 ONE Ondansetron Inj [Zofran Inj] Med 03/03/25 13:03 Discontinued 4 mg IVP X1 ONE Ringers Lactated 1000 ml [Lactated Ringers] 1,000 ml Med 03/03/25 13:09 Discontinued IV 999 mls/hr Ringers Lactated 1000 ml [Lactated Ringers] 1,000 ml Med 03/03/25 15:39 Active IV 999 mls/hr cefTRIAXone/D5w 1gm IV premix [Rocephin/D5w 1gm IV Med 03/03/25 13:09 Discontinued premix] 1 gm in 50 ml IV X1 Oxygen Delivery NOW RT 03/03/25 13:03 Active Vital Signs Vital signs: Vital Signs Temperature 100.7 F H 03/03/25 12:30 Pulse Rate 103 H 03/03/25 12:30 Respiratory Rate 22 H 03/03/25 12:30 Blood Pressure 119/79 03/03/25 12:30 Pulse Oximetry (%) 88 L 03/03/25 12:30 Oxygen Delivery Method Room Air 03/03/25 12:30 Chest Pain MDM Narrative MDM Narrative:: 59-year-old male patient with significant history of CAD, status post stent placement about 3 weeks ago, came in for evaluation regarding left-sided chest pain. Patient has been having left-sided chest pain, since 20 minutes prior to ER visit described as sharp pain, severity moderate. Associated with shortness of breath. Patient also complained of nonproductive cough for few days. Patient was also noted to be tachycardic and febrile. Oxygen saturation 87% on room air. Sepsis alert was initiated right away. Patient denies any other complaints. Was given aspirin, Nitropaste and nitro sublingual by EMS on the way to the emergency room. Sepsis alert was initiated right away for fever and tachycardia. And hypoxia. Currently patient satting 92% on 6 L Laboratory workup significant for leukocytosis of 20,000, lactic acid 3.5 urinalysis no UTI chest x-ray showed pneumonia. EKG showed normal sinus rhythm, ventricular to [address] segment elevation depression noted. Patient was noted to be hypotensive, total of 2 L given. Patient was also given ceftriaxone IV and Zithromax IV. Was also given morphine. Spoke with hospitalist, who agrees to admit the patient. Patient data External records reviewed:: None Clinical information provided by:: none Social determinants that could affect healthcare access:: none Patient has the following chronic illnesses:: CAD status post recent stent placement How is presenting disease/condition affected by chronic disease/condition?: exacerbated by Evaluation data The following diagnostics were reviewed and interpreted by me:: lab results, radiology exam(s) and EKG tracing(s) Lab and/or radiology exams considered but not ordered:: None Interpretation Summary: See results MDM Medications / Prescriptions Medications or Prescriptions considered but not ordered:: None Medication administrations:: Medication Administration History Azithromycin 500 mg/ Sodium (Chloride) 250 mls @ 250 mls/hr IV X1 ONE Stop: 03/03/25 16:31 Last Admin: 03/03/25 15:45 Dose: 250 mls/hr Documented By: EF Lactated Ringer's (Lactated Ringers) 1,000 mls @ 999 mls/hr IV .Q1H1M ONE Stop: 03/03/25 16:39 Last Admin: 03/03/25 15:45 Dose: 999 mls/hr Documented By: EF Magnesium Sulfate (Magnesium Sulfate Ivpb) 2 gm in 50 mls @ 25 mls/hr IV X1 ONE Stop: 03/03/25 17:38 Last Admin: 03/03/25 15:45 Dose: 25 mls/hr Documented By: EF Discontinued Medications Acetaminophen (Acetaminophen 500 Mg Tablet) 1,000 mg PO X1 ONE Stop: 03/03/25 14:27 Last Admin: 03/03/25 14:32 Dose: 1,000 mg Documented By: EF Ceftriaxone Sodium/Dextrose (Rocephin/D5w 1gm Iv Premix) 1 gm in 50 mls @ 100 mls/hr IV X1 ONE Stop: 03/03/25 13:38 Last Infusion: 03/03/25 13:49 Dose: Infused Documented By: Admin: 03/03/25 13:19 Dose: 100 mls/hr Documented By: EF Lactated Ringer's (Lactated Ringers) 1,000 mls @ 999 mls/hr IV .Q1H1M ONE Stop: 03/03/25 14:09 Last Infusion: 03/03/25 14:21 Dose: Infused Documented By: Admin: 03/03/25 13:20 Dose: 999 mls/hr Documented By: EF Morphine Sulfate (Morphine Sulf Inj 4 Mg/Ml Vial) 4 mg IVP X1 ONE Stop: 03/03/25 13:06 Last Admin: 03/03/25 13:20 Dose: 4 mg Documented By: EF Ondansetron HCl (Ondansetron Inj 2 Mg/Ml Inj 2 Ml) 4 mg IVP X1 ONE; Protocol Stop: 03/03/25 13:04 Last Admin: 03/03/25 13:20 Dose: 4 mg Documented By: EF IV fluids, morphine, Zofran, Zithromax and ceftriaxone IV. Patient was also given magnesium sulfate Consultations Consultation(s) initiated? (list below): No Diagnosis Chest Pain Differential Diagnosis: pneumothorax and other (Sepsis, pneumonia, chest pain) Most likely diagnosis given after review of the tests above:: Sepsis, pneumonia Admission Indicated Admission indicated?: indicated Admission Request Was there a request for admission?: Yes Admission Attestation Admission request attestation: Discussed case with [Dr aWng] from Hospitalist service regarding admission. Discussed patients ED course, exam findings, labs, and radiology results. The Hospitalist [agrees] to accept the patient for admission. Disposition Plan Disposition Plan: Admit Discharge Plan Plan Patient Disposition: Admit Acute Care w/in Hospital Discharge Disposition comment: Stable Prescriptions/Referrals Prescriptions/Med Rec: No Action amitriptyline 25 mg tablet 25 mg PO HS docusate sodium [Colace] 100 mg capsule 100 mg PO BID Qty: 30 0RF ibuprofen 600 mg tablet 600 mg PO Q8H PRN (Reason: pain (scale score 4-6)) Qty: 15 0RF hydrocodone-acetaminophen 5-325 mg tablet 1 tab PO Q6H MDD 4 PRN (Reason: pain (scale score 7-10)) Qty: 10 0RF diazepam [Valium] 5 mg tablet 5 mg PO BID PRN (Reason: anxiety) Qty: 10 0RF Referrals: Mert Quinones MD [Primary Care Provider] - In 1 week Problem List Clinical Impression: Sepsis, PNA (pneumonia) Patient/Caregiver Discharge Instructions Print Language: Guatemalan Stand Alone Forms: Mariann Award Info., Patient Portal Info Letter
[2025-03-03 13:17] LABS: Collection Type, Urine Clean Catch
[2025-03-03] MEDS: cefTRIAXone/D5w 1gm IV premix 1 GM/50 ML BAG IV (13:19)
[2025-03-03] MEDS: RINGERS LACTATED 1000 ML 1,000 ML 999 ML IV ×2 (13:20→15:45)
[2025-03-03] MEDS: ONDANSETRON INJ 2 MG/ML INJ 2 ML 4 MG IVP (13:20)
[2025-03-03] MEDS: MORPHINE SULF INJ 4 MG/ML VIAL IVP (13:20)
[2025-03-03 13:27] LABS: Basophils # (Auto) 0.1 Thou/mm3 (0.0-0.2); Basophils % (Auto) 0 % (0-2.5); Eosinophils # (Auto) 0.1 Thou/mm3 (0.0-0.5); Eosinophils % (Auto) 1 % (0-10); Hematocrit 44.4 % (41.0-53.0); Hemoglobin 15.4 g/dL (13.5-16.0); Immature Granulocytes Auto 0.11 Thou/mm3 (0.00-0.00); Lymphocytes # (Auto) 1.5 Thou/mm3 (1.0-4.8); Lymphocytes % (Auto) 8 % (10-50); Mean Corpuscular HGB Conc 34.7 g/dl (31.0-37.0); Mean Corpuscular Hemoglobin 32.4 pg (25.0-35.0); Mean Corpuscular Volume 94 fL (80-100); Monocytes # (Auto) 0.8 Thou/mm3 (0.0-0.8); Monocytes % (Auto) 4 % (0-12); Neutrophils # (Auto) 17.5 Thou/mm3 (1.8-7.7); Neutrophils % (Auto) 87 % (37-80); Nucleated Red Blood Cell # 0.00 Thou/mm3 (0.00-0.00); Nucleated Red Blood Cell % 0 /100 WBC (0); Platelet Count 259 Thou/mm3 (140-440); RDW Standard Deviation 41.5 fL (35.1-43.9); Red Blood Count 4.75 Miln/mm3 (4.50-5.90); White Blood Count 20.1 Thou/mm3 (3.8-10.6)
[2025-03-03 13:28] LABS: Lactate (Lactic Acid) 3.5 mMol/L (0.4-2.0)
[2025-03-03 13:29] LABS: Bilirubin,Urine Negative (Negative); Blood,Urine Negative (Negative); Clarity,Urine Clear (Clear/Hazy); Color,Urine Lt-Yellow (Lt Yel-Yel); Culture Indicated,Urine Not Indicated; Glucose, Urine Negative (Negative); Hyaline Casts,Urine < 1 /hpf (0-1); Ketones,Urine Negative (Negative); Leukocyte Esterase,Urine Negative (Negative); Nitrite,Urine Negative (Negative); PH,Urine 7.0 (5.0-7.0); Protein,Urine Negative (Neg - Trace); RBC,Urine 1 /hpf (0-3); Specific Gravity,Urine 1.017 (1.001-1.035); Squamous Epithelial Cell,Urine < 1 /hpf (0-5); Urobilinogen,Urine 2.0 mg/dL (0.0-1.0); WBC,Urine < 1 /hpf (0-5)
[2025-03-03 13:49] LABS: INR 1.0 (0.9-1.3); Partial Thromboplastin Time 25.9 Seconds (22.0-36.0); Prothrombin Time 11.1 Seconds (9.0-12.2)
[2025-03-03 13:50] LABS: B-Type Natriuretic Peptide < 20 pg/mL (0-100)
[2025-03-03 13:58] LABS: Alanine Aminotransferase 38 U/L (10-49); Albumin, Serum 4.1 gm/dL (3.4-4.8); Albumin/Globulin Ratio 1.2 (1.2-2.2); Alkaline Phosphatase 116 U/L (46-116); Anion Gap 11 (7-16); Aspartate Amino Transferase 32 U/L (0-34); BUN/Creatinine Ratio 12 Ratio (12-20); Bilirubin,Total 0.7 mg/dL (0.3-1.2); Blood Urea Nitrogen 11 mg/dL (9-23); Calcium 9.9 mg/dL (8.3-10.6); Calcium (Corrected) 9.9 mg/dL (8.5-10.1); Carbon Dioxide 23.9 mMol/L (20.0-31.0); Chloride 101 mMol/L (98-107); Creatinine (Component) 0.9 mg/dL (0.6-1.3); Estimated Creatinine Clearance 96.5 mL/min (>60); Globulin 3.3 gm/dL (2.3-3.5); Glucose 133 mg/dL (74-106); LDH (Lactate Dehydrogenase) 224 U/L (120-246); Lipase 22 U/L (12-53); Magnesium 1.4 mg/dL (1.6-2.6); Osmolality,Calculated 273 (275-295); Phosphorous 2.0 mg/dL (2.4-5.1); Potassium 4.8 mMol/L (3.4-5.1); Procalcitonin 0.20 ng/ml (0.0-0.49); Sodium 136 mMol/L (136-145); Total Protein 7.4 gm/dL (5.7-8.2); Troponin I < 0.002 ng/mL (0.0-0.045); eGFR > 60 See Note
[2025-03-03] MEDS: ACETAMINOPHEN 500 MG TABLET 1000 MG PO (14:32)
[2025-03-03] MEDS: Magnesium Sulfate 2 GM Ivpb 2 GM/50 ML BAG IV (15:45)
[2025-03-03] MEDS: AZITHROMYCIN INJ 500 MG in SODIUM CHLORIDE 0.9% 250 ML 250 ML 250 MG IV (15:45)
[2025-03-03 16:24] LABS: Reflex Lactate? Y
[2025-03-03 16:49] LABS: Lactic Acid, 3 HR 2.0 mMol/L (0.4-2.0)
--- NOTE | 2025-03-03 17:12 | PD.RESCONSUL ---
HPI Data of Consult Primary Care Provider: Mert Quinones MD Consult Narrative History of present illness: 59-year-old male past medical history of hypertension, coronary artery disease, [id number] smoking history, and panic attacks who presented to the ED with shortness of breath for the past 3 weeks. ED course: Vitals on arrival showed a BP of 119/79, pulse 103, respiratory rate 22, temperature 100.7, and O2 sat of 88% on room air. Chest x-ray ED showed left early basilar pneumonia. EKG showed a sinus rhythm with a rate of [address] segment changes. Significant labs were a white blood cell count of 20.1, LEFT OFF HERE Sodium 136, potassium 4.8, chloride 101, carbon oxide 23.9, anion gap of 11, BUN of 11, creatinine of 0.9, glucose 133, calculated osmolality of 273. cc:: cc: Exam Vital Signs Temp Pulse Resp BP Pulse Ox O2 Del Method O2 Flow Rate 99.0 F 79 20 100/66 95 Oxy Mask 10 03/03/25 16:38 03/03/25 16:38 03/03/25 16:38 03/03/25 16:38 03/03/25 16:38 03/03/25 16:38 03/03/25 16:38 Results Labs 03/03/25 13:20 03/03/25 13:20 Labs: Short CBC 03/03/25 Range/Units 13:20 WBC 20.1 H (3.8-10.6) Thou/mm3 Hgb 15.4 (13.5-16.0) g/dL Hct 44.4 (41.0-53.0) % Plt Count 259 D (140-440) Thou/mm3 [facility] 03/03/25 13:20 Sodium 136 Potassium 4.8 Chloride 101 Carbon Dioxide 23.9 BUN 11 Creatinine 0.9 Glucose 133 H Calcium 9.9 Cardiac Enzymes 03/03/25 Range/Units 13:20 Troponin I < 0.002 (0.0-0.045) ng/mL Liver Function 03/03/25 Range/Units 13:20 Total Bilirubin 0.7 (0.3-1.2) mg/dL AST 32 (0-34) U/L ALT 38 (10-49) U/L Alkaline Phosphatase 116 (46-116) U/L Albumin 4.1 (3.4-4.8) gm/dL Urine 03/03/25 Range/Units 13:12 Urine Color Lt-Yellow (Lt Yel-Yel) Urine Clarity Clear (Clear/Hazy) Urine pH 7.0 (5.0-7.0) Ur Specific [place] 1.017 (1.001-1.035) Urine Protein Negative (Neg - Trace) Urine Glucose (UA) Negative (Negative) Quality Measures Quality Measures none Medications Home Medications and Allergies Home Medications ?Medication ?Instructions ?Recorded ?Confirmed ?Type amitriptyline 25 mg tablet 25 mg PO HS 11/29/23 01/18/25 History Allergies Allergy/AdvReac Type Severity Reaction Status Date / Time No Known Allergies Allergy Verified 01/18/25 07:14 Visit Medications Acetaminophen (Acetaminophen 325 Mg Tablet) 650 mg PO Q6H PRN PRN Reason: Fever >101.5 Stop: 04/02/25 16:51 Albuterol/Ipratropium (Albuterol/Ipratropium (Duoneb) Rt Mary 3 Ml Nebu) 3 ml INH Q4HRRT PRN PRN Reason: SHORTNESS OF BREATH OR WHEEZE Stop: 04/02/25 18:59 Magnesium Sulfate (Magnesium Sulfate Ivpb) 2 gm in 50 mls @ 25 mls/hr IV X1 ONE Stop: 03/03/25 17:38 Last Admin: 03/03/25 15:45 Dose: 25 mls/hr Sodium Chloride (Ns) 1,000 mls @ 75 mls/hr IV .[id number] [facility] Stop: 04/02/25 16:59 Azithromycin 250 mg/ Sterile (Water 2.5 ml/ Sodium Chloride) 252.5 mls @ 252.5 mls/hr IV QDAY [facility] Stop: 03/11/25 08:59 Ceftriaxone Sodium/Dextrose (Rocephin/D5w 1gm Iv Premix) 1 gm in 50 mls @ 100 mls/hr IV QDAY [facility] Stop: 03/11/25 08:59 Ondansetron HCl (Ondansetron Inj 2 Mg/Ml Inj 2 Ml) 4 mg IVP Q6H PRN; Protocol PRN Reason: NAUSEA OR VOMITING Stop: 04/02/25 16:51 Discontinued Medications Acetaminophen (Acetaminophen 500 Mg Tablet) 1,000 mg PO X1 ONE Stop: 03/03/25 14:27 Last Admin: 03/03/25 14:32 Dose: 1,000 mg Ceftriaxone Sodium/Dextrose (Rocephin/D5w 1gm Iv Premix) 1 gm in 50 mls @ 100 mls/hr IV X1 ONE Stop: 03/03/25 13:38 Last Infusion: 03/03/25 13:49 Dose: Infused Lactated Ringer's (Lactated Ringers) 1,000 mls @ 999 mls/hr IV .Q1H1M ONE Stop: 03/03/25 14:09 Last Infusion: 03/03/25 14:21 Dose: Infused Azithromycin 500 mg/ Sodium (Chloride) 250 mls @ 250 mls/hr IV X1 ONE Stop: 03/03/25 16:31 Last Infusion: 03/03/25 16:45 Dose: Infused Lactated Ringer's (Lactated Ringers) 1,000 mls @ 999 mls/hr IV .Q1H1M ONE Stop: 03/03/25 16:39 Last Infusion: 03/03/25 16:46 Dose: Infused Morphine Sulfate (Morphine Sulf Inj 4 Mg/Ml Vial) 4 mg IVP X1 ONE Stop: 03/03/25 13:06 Last Admin: 03/03/25 13:20 Dose: 4 mg Ondansetron HCl (Ondansetron Inj 2 Mg/Ml Inj 2 Ml) 4 mg IVP X1 ONE; Protocol Stop: 03/03/25 13:04 Last Admin: 03/03/25 13:20 Dose: 4 mg Sodium Chloride (Sodium Chloride Rt 10% 15 Ml Nebu) 5 ml INH X1 ONE Stop: 03/03/25 16:58
[2025-03-03] MEDS: SODIUM CHLORIDE 0.9% 1000 ML 1,000 ML 75 ML IV (17:22)
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
[2025-03-03] MEDS: SODIUM CHLORIDE 0.9% 500 ML 500 ML 999 ML IV (17:38)
[2025-03-03] MEDS: SODIUM CHLORIDE 0.9% 250 ML 250 ML 999 ML IV ×2 (18:21→18:34)
--- NOTE | 2025-03-03 19:47 | XR_ITS ---
Examination: AP chest single view Technique: AP portable upright chest single view Date and time: March 03, 20252009 hrs., Comparison 03/03/2025 1331 hrs. Indications: Shortness of breath today. Findings: Mild prominence left ventricle Bilateral subsegmental atelectasis Pneumonia left base No pulmonary edema Impression: Significant pneumonia left base
[2025-03-03] MEDS: MIDODRINE 5 MG TABLET 10 MG PO (19:54)
[2025-03-03] MEDS: ATORVASTATIN CALCIUM 20 MG TABLET 80 MG PO (20:24)
[2025-03-03 20:32] LABS: Troponin I < 0.020 ng/mL (0.0-0.045)
[2025-03-03] MEDS: Vancomycin Inj 2,000 MG in SODIUM CHLORIDE 0.9% 500 ML 500 ML 150 MG IV (20:45)
[2025-03-03] MEDS: MIDODRINE 5 MG TABLET PO (22:11)
[2025-03-04] VITALS (9 sets, daily range): BP systolic 99–132; BP diastolic 68–94; PULSE 70–88; RESP 13–20; TEMP 36–36.5; O2SAT 92–98; BMI 50.6
[2025-03-04 06:14] LABS: Basophils # (Auto) 0.1 Thou/mm3 (0.0-0.2); Basophils % (Auto) 0 % (0-2.5); Eosinophils # (Auto) 0.2 Thou/mm3 (0.0-0.5); Eosinophils % (Auto) 1 % (0-10); Hematocrit 37.7 % (41.0-53.0); Hemoglobin 12.9 g/dL (13.5-16.0); Immature Granulocytes Auto 0.27 Thou/mm3 (0.00-0.00); Lymphocytes # (Auto) 3.5 Thou/mm3 (1.0-4.8); Lymphocytes % (Auto) 14 % (10-50); Mean Corpuscular HGB Conc 34.2 g/dl (31.0-37.0); Mean Corpuscular Hemoglobin 33.2 pg (25.0-35.0); Mean Corpuscular Volume 97 fL (80-100); Monocytes # (Auto) 2.1 Thou/mm3 (0.0-0.8); Monocytes % (Auto) 8 % (0-12); Neutrophils # (Auto) 19.6 Thou/mm3 (1.8-7.7); Neutrophils % (Auto) 76 % (37-80); Nucleated Red Blood Cell # 0.00 Thou/mm3 (0.00-0.00); Nucleated Red Blood Cell % 0 /100 WBC (0); Platelet Count 219 Thou/mm3 (140-440); RDW Standard Deviation 43.8 fL (35.1-43.9); Red Blood Count 3.89 Miln/mm3 (4.50-5.90); White Blood Count 25.7 Thou/mm3 (3.8-10.6)
[2025-03-04 06:35] LABS: Alanine Aminotransferase 30 U/L (10-49); Albumin, Serum 3.4 gm/dL (3.4-4.8); Albumin/Globulin Ratio 1.3 (1.2-2.2); Alkaline Phosphatase 82 U/L (46-116); Anion Gap 9 (7-16); Aspartate Amino Transferase 23 U/L (0-34); BUN/Creatinine Ratio 14 Ratio (12-20); Bilirubin,Total 0.9 mg/dL (0.3-1.2); Blood Urea Nitrogen 14 mg/dL (9-23); Calcium 8.9 mg/dL (8.3-10.6); Calcium (Corrected) 9.4 mg/dL (8.5-10.1); Carbon Dioxide 25.1 mMol/L (20.0-31.0); Cardiac Risk Estimate 2.8 RATIO (4.0-6.7); Chloride 104 mMol/L (98-107); Cholesterol 91 mg/dL (132-200); Creatinine (Component) 1.0 mg/dL (0.6-1.3); Estimated Creatinine Clearance 88.9 mL/min (>60); Globulin 2.7 gm/dL (2.3-3.5); Glucose 96 mg/dL (74-106); HDL Cholesterol 32 mg/dL (40-60); LDL Cholesterol,Calculated 37 mg/dL (0-130); Magnesium 1.7 mg/dL (1.6-2.6); Osmolality,Calculated 276 (275-295); Phosphorous 2.7 mg/dL (2.4-5.1); Potassium 4.2 mMol/L (3.4-5.1); Sodium 138 mMol/L (136-145); Total Protein 6.1 gm/dL (5.7-8.2); Triglycerides 109 mg/dL (30-150); eGFR > 60 See Note
[2025-03-04] MEDS: SODIUM CHLORIDE 0.9% 1000 ML 1,000 ML 75 ML IV ×2 (08:27→20:02)
[2025-03-04] MEDS: ATORVASTATIN CALCIUM 20 MG TABLET 80 MG PO (08:27)
[2025-03-04] MEDS: METHADONE HCL 10 MG TABLET 40 MG PO ×2 (08:28→11:49)
[2025-03-04] MEDS: ASPIRIN EC 81 MG TABEC PO (08:29)
[2025-03-04] MEDS: cefTRIAXone/D5w 1gm IV premix 1 GM/50 ML BAG IV (08:31)
[2025-03-04] MEDS: TICAGRELOR 90 MG TABLET PO ×2 (08:42→20:01)
[2025-03-04] MEDS: AZITHROMYCIN INJ 250 MG, Sterile Water 2.5 ML in SODIUM CHLORIDE 0.9% 250 ML 250 ML 252.5 MG IV (09:52)
[2025-03-04] MEDS: VANCOMYCIN/WATER 1250 MG IVPB 250 ML 120 MG IV ×2 (11:48→21:08)
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
--- NOTE | 2025-03-04 15:17 | PC.SS ---
Patient is alert/oriented. Patient was able to verify demographics. Patient was admitted for sepsis. Patient states he resides alone. Independent with ADL's. No DME. Patient has a history of anxiety. He is on methadone @ 80mg and has been taking for the last 6 years. Patient follows at [facility] Patient states he was referred by PCP to a psychiatrist. Patient receives social security income. Patient family provides transportation. PCP: ALEXANDRA and last appt. was yesterday. Pharmacy: [facility]. Discharge plan is to return home. alt medical decision maker: Mckenzie Herring, d/c plan: return home transportation: family/uber
[2025-03-04] MEDS: AMITRIPTYLINE HCL 25 MG TABLET PO (20:01)
[2025-03-05] VITALS (9 sets, daily range): BP systolic 112–134; BP diastolic 79–90; PULSE 73–92; RESP 12–25; TEMP 36.1–36.9; O2SAT 95–98; BMI 51.4
[2025-03-05 05:40] LABS: Basophils # (Auto) 0.0 Thou/mm3 (0.0-0.2); Basophils % (Auto) 0 % (0-2.5); Eosinophils # (Auto) 0.4 Thou/mm3 (0.0-0.5); Eosinophils % (Auto) 2 % (0-10); Hematocrit 40.6 % (41.0-53.0); Hemoglobin 13.7 g/dL (13.5-16.0); Immature Granulocytes Auto 0.06 Thou/mm3 (0.00-0.00); Lymphocytes # (Auto) 2.6 Thou/mm3 (1.0-4.8); Lymphocytes % (Auto) 16 % (10-50); Mean Corpuscular HGB Conc 33.7 g/dl (31.0-37.0); Mean Corpuscular Hemoglobin 32.5 pg (25.0-35.0); Mean Corpuscular Volume 96 fL (80-100); Monocytes # (Auto) 1.7 Thou/mm3 (0.0-0.8); Monocytes % (Auto) 10 % (0-12); Neutrophils # (Auto) 11.3 Thou/mm3 (1.8-7.7); Neutrophils % (Auto) 71 % (37-80); Nucleated Red Blood Cell # 0.00 Thou/mm3 (0.00-0.00); Nucleated Red Blood Cell % 0 /100 WBC (0); Platelet Count 234 Thou/mm3 (140-440); RDW Standard Deviation 43.8 fL (35.1-43.9); Red Blood Count 4.22 Miln/mm3 (4.50-5.90); White Blood Count 16.0 Thou/mm3 (3.8-10.6)
[2025-03-05 06:01] LABS: Alanine Aminotransferase 28 U/L (10-49); Albumin, Serum 3.8 gm/dL (3.4-4.8); Albumin/Globulin Ratio 1.3 (1.2-2.2); Alkaline Phosphatase 87 U/L (46-116); Anion Gap 9 (7-16); Aspartate Amino Transferase 28 U/L (0-34); BUN/Creatinine Ratio 11 Ratio (12-20); Bilirubin,Total 0.7 mg/dL (0.3-1.2); Blood Urea Nitrogen 8 mg/dL (9-23); Calcium 9.5 mg/dL (8.3-10.6); Calcium (Corrected) 9.7 mg/dL (8.5-10.1); Carbon Dioxide 26.1 mMol/L (20.0-31.0); Chloride 103 mMol/L (98-107); Creatinine (Component) 0.7 mg/dL (0.6-1.3); Estimated Creatinine Clearance 128.2 mL/min (>60); Globulin 2.9 gm/dL (2.3-3.5); Glucose 77 mg/dL (74-106); Magnesium 1.8 mg/dL (1.6-2.6); Osmolality,Calculated 272 (275-295); Phosphorous 3.1 mg/dL (2.4-5.1); Potassium 4.2 mMol/L (3.4-5.1); Sodium 138 mMol/L (136-145); Total Protein 6.7 gm/dL (5.7-8.2); eGFR > 60 See Note
[2025-03-05] MEDS: METHADONE HCL 10 MG TABLET 80 MG PO (08:04)
[2025-03-05] MEDS: cefTRIAXone/D5w 1gm IV premix 1 GM/50 ML BAG IV (08:09)
[2025-03-05] MEDS: ATORVASTATIN CALCIUM 20 MG TABLET 80 MG PO (08:13)
[2025-03-05] MEDS: ASPIRIN EC 81 MG TABEC PO (08:13)
[2025-03-05] MEDS: TICAGRELOR 90 MG TABLET PO ×2 (08:14→20:31)
[2025-03-05] MEDS: SODIUM CHLORIDE 0.9% 1000 ML 1,000 ML 75 ML IV ×2 (08:16→20:59)
[2025-03-05] MEDS: AZITHROMYCIN 250 MG TABLET PO (08:16)
[2025-03-05] MEDS: POLYETHYLENE GLYCOL 17 GM PACKET PO (08:23)
[2025-03-05 10:08] LABS: Vancomycin,Trough 9.7 mcg/mL (5.0-10.0)
[2025-03-05] MEDS: LACTULOSE SYRUP 20 GM/30 ML UDC PO (10:45)
[2025-03-05] MEDS: VANCOMYCIN/D5W 1500 MG IVPB 300 ML 120 MG IV ×2 (10:45→21:00)
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
[2025-03-05 14:00] LABS: Cocci Serology, IgM Negative (Negative)
[2025-03-05] MEDS: AMITRIPTYLINE HCL 25 MG TABLET PO (20:31)
[2025-03-06] VITALS: BP 120/83; PULSE 72; PULSE 75; RESP 13; TEMP 36.4; O2SAT 96
[2025-03-06 04:00] VITALS: BP 124/82; PULSE 80; PULSE 88; RESP 20; TEMP 36.4; O2SAT 95
[2025-03-06 06:00] VITALS: BMI 50.5
[2025-03-06 06:04] LABS: Basophils # (Auto) 0.1 Thou/mm3 (0.0-0.2); Basophils % (Auto) 1 % (0-2.5); Eosinophils # (Auto) 0.3 Thou/mm3 (0.0-0.5); Eosinophils % (Auto) 3 % (0-10); Hematocrit 43.3 % (41.0-53.0); Hemoglobin 14.8 g/dL (13.5-16.0); Immature Granulocytes Auto 0.04 Thou/mm3 (0.00-0.00); Lymphocytes # (Auto) 2.4 Thou/mm3 (1.0-4.8); Lymphocytes % (Auto) 23 % (10-50); Mean Corpuscular HGB Conc 34.2 g/dl (31.0-37.0); Mean Corpuscular Hemoglobin 32.2 pg (25.0-35.0); Mean Corpuscular Volume 94 fL (80-100); Monocytes # (Auto) 1.1 Thou/mm3 (0.0-0.8); Monocytes % (Auto) 11 % (0-12); Neutrophils # (Auto) 6.5 Thou/mm3 (1.8-7.7); Neutrophils % (Auto) 62 % (37-80); Nucleated Red Blood Cell # 0.00 Thou/mm3 (0.00-0.00); Nucleated Red Blood Cell % 0 /100 WBC (0); Platelet Count 254 Thou/mm3 (140-440); RDW Standard Deviation 42.5 fL (35.1-43.9); Red Blood Count 4.59 Miln/mm3 (4.50-5.90); White Blood Count 10.4 Thou/mm3 (3.8-10.6)
[2025-03-06 06:23] VITALS: PULSE 84; RESP 20; O2SAT 96
[2025-03-06 06:43] LABS: Alanine Aminotransferase 24 U/L (10-49); Albumin, Serum 3.9 gm/dL (3.4-4.8); Albumin/Globulin Ratio 1.2 (1.2-2.2); Alkaline Phosphatase 90 U/L (46-116); Anion Gap 11 (7-16); Aspartate Amino Transferase 23 U/L (0-34); BUN/Creatinine Ratio 9 Ratio (12-20); Bilirubin,Total 0.7 mg/dL (0.3-1.2); Blood Urea Nitrogen 6 mg/dL (9-23); Calcium 9.7 mg/dL (8.3-10.6); Calcium (Corrected) 9.8 mg/dL (8.5-10.1); Carbon Dioxide 25.4 mMol/L (20.0-31.0); Chloride 102 mMol/L (98-107); Creatinine (Component) 0.7 mg/dL (0.6-1.3); Estimated Creatinine Clearance 126.8 mL/min (>60); Globulin 3.3 gm/dL (2.3-3.5); Glucose 77 mg/dL (74-106); Magnesium 1.7 mg/dL (1.6-2.6); Osmolality,Calculated 272 (275-295); Phosphorous 3.7 mg/dL (2.4-5.1); Potassium 3.9 mMol/L (3.4-5.1); Sodium 138 mMol/L (136-145); Total Protein 7.2 gm/dL (5.7-8.2); eGFR > 60 See Note
[2025-03-06 08:00] VITALS: BP 141/97; PULSE 80; PULSE 92; RESP 18; TEMP 36.5; O2SAT 96
[2025-03-06] MEDS: METHADONE HCL 10 MG TABLET 80 MG PO (08:34)
[2025-03-06] MEDS: ASPIRIN EC 81 MG TABEC PO (08:35)
[2025-03-06] MEDS: AZITHROMYCIN 250 MG TABLET PO (08:35)
[2025-03-06] MEDS: ATORVASTATIN CALCIUM 20 MG TABLET 80 MG PO (08:35)
[2025-03-06] MEDS: LACTULOSE SYRUP 20 GM/30 ML UDC PO (08:36)
[2025-03-06] MEDS: cefTRIAXone/D5w 1gm IV premix 1 GM/50 ML BAG IV (08:36)
--- NOTE | 2025-03-06 09:50 | ESDS_ITS ---
<Statement entered by Moise Marsh MD - 03/10/25 14:17> I reviewed above note and agree with findings and plans. I have also personally examined the patient with medicine team and went over assessment and plan with medical team including purchasing intern and resident physician. <Statement entered by Glen Quinteros MD - 03/06/25 15:36> Patient was examined with the team including attending physician. Note reviewed, I agree with the discharge plan as documented. - Glen Quinteros MD PGY 3 Disclaimer: The document may contain phonetic/typographic errors due to voice recognition software. Planned Discharge Date 03/06/25 DS: Providers Provider Date of admission: 03/03/25 16:47 Primary care physician: Mert Quinones MD Admitting Provider: Moise Marsh MD Attending Provider on Admission: Moise Marsh MD Consults: 03/05/25 11:53 Referral Physical Therapy Routine Comment: Physician Instructions: Attending Provider on DC: Moise Marsh MD Discharging Provider: Moise Marsh MD DS: Diagnosis Discharge Diagnosis (1) PNA (pneumonia): Status: Acute Problem List Completed Was Problem List Reviewed/Reconciled?: Yes Hospital Course Hospital Course Hospital course: Hospital Course: 59-year-old male past medical history of hypertension, coronary artery disease, [id number] smoking history quitting 3 weeks ago, chronic pain, and panic attacks who presented to the ED with shortness of breath for the past 3 weeks. For 3 weeks he had shortness of breath several times per day. He has also had panic attacks associated with shortness of breath. Of note, the patient had a cholecystectomy about 5 weeks ago and the patient had a coronary angiogram in which 2 stents were placed about 3 weeks ago. The patient was given 3.8 L of fluid in the ED to maintain a MAP of 65 and was admitted for acute hypoxic respiratory failure secondary to pneumonia and sepsis secondary to pneumonia. He was started on broad-spectrum antibiotics. The patient was found to have Streptococcus pneumonia on sputum culture. He will be discharged on a 2-week course of oral amoxicillin. The day of discharge the patient underwent a treatment with DuoNebs due to wheezing. Prior to discharge the patient returned to his baseline and was saturating at 97% on room air. Of note during his hospital stay, the patient experienced several episodes of what he described as panic attacks, during which time he was given 0.25 mg of alprazolam. Problem List: #Acute hypoxic respiratory failure secondary to community-acquired pneumonia #Sepsis secondary to community-acquired pneumonia #Hypertension #Coronary artery disease #Hyperlipidemia #Chronic pain on methadone #Panic attacks #Constipation Discharge Instructions: - Take your Amoxicillin 1 g, 3 times per day for 14 days for your pneumonia. Make sure that you complete the entire course of medication. If you miss a dose, do not stack doses, just take the next dose at the appropriate time of day. - Follow-up with PCP within 1-2 weeks of discharge, if you do not have a PCP then you can call the [facility] at [phone] - Continue taking Aspirin and Ticagrelor as prescribed, until follow up with your Stamp Press Operator. - May take Benefiber 1 scoop every night in warm water for constipation. - Stop NSAIDs such as Ibuprofen to prevent gastric ulcers and worsening BP. - Return to ED if symptoms worsen. The patient was seen and discussed with my attending physician Dr. Marsh my senior resident Dr. Glen Quinteros MD PGY-3. Bjorn Camarena DO PGY-1 Time Spent with Patient Time attestation: Total time spent providing and/or coordinating discharge services: More than 50% Time spent: Greater than 30 minutes Exam Vital Signs Temp Pulse Resp BP Pulse Ox O2 Del Method O2 Flow Rate 97.6 F 84 20 124/82 96 Nasal Cannula 2 03/06/25 04:00 03/06/25 06:23 03/06/25 06:23 03/06/25 04:00 03/06/25 06:23 03/06/25 04:00 03/06/25 06:23 Narrative Exam General: Obese man. Anxious. Neurologic: GCS 15. Alert and oriented x3, no gross neurological deficit, and patient able to move all 4 extremities. HEENT: Normocephalic, atraumatic, mucous membranes moist. Pupils reactive to light. Heart: Regular rate, regular rhythm, normal S1 and S2, no murmurs. Lungs: Diffuse expiratory wheezes bilaterally. Abdomen: Obese, firm, nondistended, tender to palpation in the right upper quadrant, positive bowel sounds. No guarding or rebound tenderness. Extremities: Trace edema in the lower extremities bilaterally below the knee. 2+ radial and dorsalis pedis pulses bilaterally. Skin: Warm. Dry. No rash or ecchymoses. Discharge Plan Plan Patient Disposition: HOME (Self Care) Patient condition on transfer: Stable Care Plan Goals: - Take your Amoxicillin 1 g, 3 times per day for 14 days for your pneumonia. Make sure that you complete the entire course of medication. If you miss a dose, do not stack doses, just take the next dose at the appropriate time of day. - Follow-up with PCP within 1-2 weeks of discharge - Continue taking Aspirin and Ticagrelor as prescribed, until follow up with your Stamp Press Operator. - May take Benefiber 1 scoop every night in warm water for consitpation. - Stop NSAIDs such as Ibuprofen to prevent gastric ulcers and worsening BP. - Return to ED if symptoms worsen. Prescriptions/Referrals Prescriptions/Med Rec: New amoxicillin 500 mg tablet 1,000 mg PO TID 10 Days Qty: 60 0RF ticagrelor 90 mg tablet 90 mg PO BID 30 Days Qty: 60 0RF wheat dextrin 5 gram/7.4 gram powder 10 g PO HS 30 Days Qty: 500 0RF hydroxyzine HCl 25 mg tablet 25 mg PO BID PRN (Reason: Anxiety/Agitation) 5 Days Qty: 10 0RF Continued amitriptyline 25 mg tablet 25 mg PO HS docusate sodium [Colace] 100 mg capsule 100 mg PO BID Qty: 30 0RF hydrocodone-acetaminophen 5-325 mg tablet 1 tab PO Q6H MDD 4 PRN (Reason: pain (scale score 7-10)) Qty: 10 0RF nitroglycerin 0.4 mg tablet, sublingual 0.4 mg BUCCAL Q5MIN PRN (Reason: chest pain) aspirin 81 mg tablet,chewable 1 tab PO Q8H PRN (Reason: pain) methadone 10 mg/mL concentrate 80 mg PO QDAY Patient Comments: [facility] [place] diazepam [Valium] 5 mg tablet 5 mg PO BID PRN (Reason: anxiety) Qty: 10 0RF Discontinued ibuprofen 600 mg tablet 600 mg PO Q8H PRN (Reason: pain (scale score 4-6)) Qty: 15 0RF Referrals: Mert Quinones MD [Primary Care Provider] Patient/Caregiver Discharge Instructions Discharge Activity: resume usual activities Education Materials: Exercise for a Healthier Heart, Treating Pneumonia, ED Pneumonia (Adult) Print Language: Mohawk Stand Alone Forms: Mariann Award Info., Patient Portal Info Letter Discharge Order Discharge Orders: Discharge (Routine); Ordered 03/06/25 Ordered By: Bjorn Camarena Quality Discharge Quality Measures none
[2025-03-06] MEDS: TICAGRELOR 90 MG TABLET PO (09:57)
[2025-03-06] MEDS: VANCOMYCIN/D5W 1500 MG IVPB 300 ML 120 MG IV (10:10)
[2025-03-06 12:00] VITALS: BP 121/76; PULSE 84; PULSE 85; RESP 17; TEMP 36.4; O2SAT 96
[2025-03-06] MEDS: guaiFENesin SYRUP 200 MG/10 ML UDC PO (12:33)
[2025-03-06 12:46] VITALS: PULSE 90; PULSE 91; RESP 20; RESP 95; O2SAT 97
[2025-03-06] MEDS: ALBUTEROL/IPRATROPIUM (Duoneb) RT SOL 3 ML NEBU INH (12:46)
[2025-03-06 13:42] LABS: Cocci Serology, IgG Negative (Negative)
--- NOTE | 2025-03-06 14:31 | PC.PT ---
PT Eval completed. Recommend home health PT referral and FWW on discharge.
--- NOTE | 2025-03-06 15:06 | PC.SS ---
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 Original Note: Rounding note: d/c home.
--- NOTE | 2025-03-06 15:07 | PC.SS ---
Rounding note: d/c today.
== END 2025-03-06 15:12 | disposition home or self-care (01) | DRG 720 ==
LOC: SERX 15:48 → SERHOLD 18:08 → S2NX 21:31
PROVIDERS: Nurse Practitioner Family; Admitting Provider Internal Medicine; Emergency Provider Family Medicine; PCP Family Medicine; Visit Provider Internal Medicine
DX: A40.9 Streptococcal sepsis, unspecified (principal); J96.01 Acute respiratory failure with hypoxia; I25.10 Atherosclerotic heart disease of native coronary artery without angina pectoris; I95.9 Hypotension, unspecified; F41.0 Panic disorder [episodic paroxysmal anxiety]; J18.9 Pneumonia, unspecified organism; I10 Essential (primary) hypertension; E78.5 Hyperlipidemia, unspecified; G89.29 Other chronic pain; E87.20 Acidosis, unspecified; K59.00 Constipation, unspecified; Z95.5 Presence of coronary angioplasty implant and graft; Z87.891 Personal history of nicotine dependence; Z79.891 Long term (current) use of opiate analgesic; Z79.02 Long term (current) use of antithrombotics/antiplatelets; Z79.82 Long term (current) use of aspirin
CPT/HCPCS: 36415; 71045; 80053; 80061; 80202; 81001; 83605; 83615; 83690; 83735; 83880; 84100; 84145; 84484; 85025; 85610; 85730; 86331; 86635; 87040; 87081; 87186; 87205; 87400; 87811; 93005; 94640; 96361; 96365; 96366; 96375; 99284; A4216; A9270; J0456; J0696; J2270; J2405; J3372; J3373; J3475; J7030; J7050; J7120; J7999

== ENCOUNTER 2025-03-15 22:05 | Emergency (ER) | payer MEDICAID, SELFPAY ==
[2025-03-15 22:06] VITALS: PULSE 60; RESP 16; O2SAT 99; BMI 34.8
[2025-03-15 22:11] VITALS: BP 106/74; PULSE 58; RESP 16; TEMP 37; O2SAT 99
--- NOTE | 2025-03-15 22:17 | PD.EDCHEST ---
ED Chest Pain RME/HPI General Chief Complaint: Chest Pain Stated Complaint: CHEST PAIN Time Seen by Provider: 03/15/25 22:20 Arrival date/time: 03/15/25 22:05 RME / HPI RME / HPI narrative: Dr. Garg?s Main ED Evaluation: 59yo male with a history of HTN, CAD, AK s/p 2 stents (01/2025) BIBA from home presents to the ED for a chief complaint of intermittent lower chest pressure x 1 hour STUMP BLOWER. Patient was watching TV when he started breaking out in a cold sweat and developed lower chest pressure. No radiation or migration. Reports associated shortness of breath. Patient took 1 sublingual nitroglycerin at home. EMS administered 1 additional sublingual nitroglycerin tablet and 1-inch of nitropaste en route with improvement of symptoms. Patient denies any cough or any other associated symptoms. Patient has been compliant with his medications. NKA. Related Data Home Medications ?Medication ?Instructions ?Recorded ?Confirmed amitriptyline 25 mg tablet 25 mg PO HS 11/29/23 03/03/25 aspirin 81 mg chewable tablet 1 tab PO Q8H PRN pain 03/03/25 03/03/25 nitroglycerin 0.4 mg sublingual 0.4 mg buccal Q5MIN PRN chest pain 03/03/25 03/03/25 tablet methadone 10 mg/mL oral concentrate 80 mg PO QDAY 03/04/25 03/04/25 Previous Rx's ?Medication ?Instructions ?Recorded docusate sodium 100 mg capsule 100 mg PO BID #30 caps 01/18/25 (Colace) hydrocodone 5 mg-acetaminophen 325 1 tab PO Q6H PRN pain (scale score 01/18/25 mg tablet 7-10) #10 tabs diazepam 5 mg tablet (Valium) 5 mg PO BID PRN anxiety #10 tabs 02/23/25 amoxicillin 500 mg tablet 1,000 mg (2 x 500 mg) PO TID 10 03/06/25 days #60 tabs ticagrelor 90 mg tablet 90 mg PO BID 1 month #60 tabs 03/06/25 wheat dextrin 5 gram/7.4 gram oral 10 g PO HS 1 month #500 grams 03/06/25 powder Allergies Allergy/AdvReac Type Severity Reaction Status Date / Time No Known Allergies Allergy Verified 01/18/25 07:14 Review of Systems Review of Systems Systems Reviewed: All systems reviewed, normal except as documented ED Exam Narrative Physical exam: Generally the patient is alert chronically ill-appearing but no obvious distress, heart bradycardic rate with regular rhythm, lungs clear to auscultation equal bilaterally, abdomen soft bowel sounds present's and nontender, skin is cool pale and dry, neurologic exam no focal motor or sensory deficits cranial nerves II through XII grossly intact patient is a poor historian Course Course Course Narrative: CXR is ordered for determining the etiology of chest pain. Quality Measures none Orders Category Date Time Status EKG (ED ONLY) *Do not use* NOW Care 03/15/25 22:27 Completed EKG (ED Only) Stat Exams 03/15/25 22:27 Ordered XR chest 1V portable Stat Exams 03/15/25 22:27 Completed BNP [B-Type Natriuretic Peptide] Stat Lab 03/15/25 22:30 Completed CBC Stat Lab 03/15/25 22:30 Completed CMP [Comprehensive Metabolic Panel] Stat Lab 03/15/25 22:30 Completed Troponin I Stat Lab 03/15/25 22:30 Completed Troponin I Stat Lab 03/16/25 00:31 Completed Midazolam Inj [Versed Inj] Med 03/16/25 00:27 Discontinued 2 mg IVP X1 ONE Nitroglycerin Oint 2% [Nitro-paste Oint 2%] Med 03/15/25 22:28 Discontinued 1 inch TOP X1 ONE Vital Signs Vital signs: Vital Signs Temperature 98.6 F 03/15/25 22:11 Pulse Rate 58 L 03/15/25 22:11 Respiratory Rate 16 03/15/25 22:11 Blood Pressure 106/74 03/15/25 22:11 Pulse Oximetry (%) 99 03/15/25 22:11 Oxygen Delivery Method Room Air 03/15/25 22:11 Chest Pain MDM Narrative MDM Narrative:: Scribe Attestation: 03/15/25 Fanny Ellington am scribing for and in the presence of Dr. Garg. I interpreted all labs. 2 separate troponins each are not elevated at 0.02 and these were drawn 2 hours apart and with the second 1 being greater than 3 hours from the onset of chest pain. EKG shows sinus bradycardia at a rate of [address] segment change. Chest x-ray showed mild vascular congestion without pulmonary edema or effusion. Patient's blood pressure at time of discharge is 111/68. He is chest pain-free at time of discharge. I investigated the patient's past medical history in the computer including his recent hospitalization for sepsis secondary to community-acquired pneumonia. He has completed his antibiotic course. There is no evidence of pneumonia on chest x-ray. Patient will be discharged in stable condition to take all of his medications as prescribed. Patient data External records reviewed:: [facility] previous records (Per chart review, patient was admitted here on 03/03/25 for acute respiratory failure secondary to pneumonia.) and EMS form Clinical information provided by:: patient Social determinants that could affect healthcare access:: substance use (former methamphetamine use) Patient has the following chronic illnesses:: HTN, CAD, [place] s/p 2 stents (01/2025), 14-gnmf-mies smoking history quitting 3 weeks ago, chronic pain, and panic attacks How is presenting disease/condition affected by chronic disease/condition?: exacerbated by Evaluation data The following diagnostics were reviewed and interpreted by me:: lab results, radiology exam(s) and EKG tracing(s) Lab and/or radiology exams considered but not ordered:: none Interpretation Summary: [facility] Report Signed Patient: LELA NIETO [facility]. Record#: [id number] Birthdate: 1965 Age/Sex: 59 / M Location: [facility] Attending Dr: Ordering Physician: Francisco Garg DO Date of Service: 03/15/25 Procedure(s): XR chest 1V portable Accession Number(s): [id number] cc: Alberto Meyer MD; Zenon Bernstein MD; Francisco Garg DO~ Examination: AP chest single view Technique one AP portable upright chest single view Date and time: March 15, 2025 1058 hrs. Comparison: 03/03/2025 Indications: Chest pain today. Findings: Mild prominence of ventricle Mild vascular congestion. No lobar pneumonia or pulmonary edema. Moderate osteopenia. Impression: Mild vascular congestion Dictated By: Zenon Bernstein MD Signed By: <Electronically signed by Zenon Bernstein MD in OV> 03/15/25 2306 Medications / Prescriptions Medications or Prescriptions considered but not ordered:: none Medication administrations:: Medication Administration History Discontinued Medications Midazolam HCl (Midazolam Inj 1 Mg/Ml Vial 2 Ml) 2 mg IVP X1 ONE Stop: 03/16/25 00:28 Last Admin: 03/16/25 00:41 Dose: 2 mg Documented By: DT Nitroglycerin (Nitroglycerin Oint 2% 1 Inch Packet) 1 inch TOP X1 ONE Stop: 03/15/25 22:29 Last Admin: 03/15/25 22:58 Dose: Not Given Documented By: DT Non-Admin Reason: Cancelled by Provider see above Consultations Consultation(s) initiated? (list below): No Diagnosis Chest Pain Differential Diagnosis: other (See MDM) Most likely diagnosis given after review of the tests above:: see clinical impression below Admission Indicated Admission indicated?: not indicated Admission Request Was there a request for admission?: No Disposition Plan Disposition Plan: Discharge Discharge Attestation Discharge Attestation: The patient and all family members were given an opportunity to ask questions and understood the discharge instructions. Discharge instructions specifically effects, indications for sooner follow up or return to the emergency department, and the expected course of current diagnosis. Patient condition: Stable Discharge Plan Plan Patient Disposition: HOME (Self Care) Prescriptions/Referrals Prescriptions/Med Rec: No Action amitriptyline 25 mg tablet 25 mg PO HS docusate sodium [Colace] 100 mg capsule 100 mg PO BID Qty: 30 0RF hydrocodone-acetaminophen 5-325 mg tablet 1 tab PO Q6H MDD 4 PRN (Reason: pain (scale score 7-10)) Qty: 10 0RF nitroglycerin 0.4 mg tablet, sublingual 0.4 mg BUCCAL Q5MIN PRN (Reason: chest pain) aspirin 81 mg tablet,chewable 1 tab PO Q8H PRN (Reason: pain) methadone 10 mg/mL concentrate 80 mg PO QDAY Patient Comments: [facility] [place] amoxicillin 500 mg tablet 1,000 mg PO TID 10 Days Qty: 60 0RF ticagrelor 90 mg tablet 90 mg PO BID 30 Days Qty: 60 0RF wheat dextrin 5 gram/7.4 gram powder 10 g PO HS 30 Days Qty: 500 0RF diazepam [Valium] 5 mg tablet 5 mg PO BID PRN (Reason: anxiety) Qty: 10 0RF Referrals: Alberto Meyer MD [Primary Care Provider, Family Practice] - In 1 week Problem List Clinical Impression: Chest pain Patient/Caregiver Discharge Instructions Education Materials: ED Chest Pain, Uncertain Cause Additional Instructions: Continue all current medications. Follow-up with your doctor. Return to ER as needed or if condition worsens. Print Language: Cape Verdean Stand Alone Forms: Marian[employer] Award Info., Patient Portal Info Letter
--- NOTE | 2025-03-15 22:27 | XR_ITS ---
Examination: AP chest single view Technique one AP portable upright chest single view Date and time: March 15, 2025 1058 hrs. Comparison: 03/03/2025 Indications: Chest pain today. Findings: Mild prominence of ventricle Mild vascular congestion. No lobar pneumonia or pulmonary edema. Moderate osteopenia. Impression: Mild vascular congestion
[2025-03-15 22:40] VITALS: BP 95/71; PULSE 55; RESP 15; O2SAT 94
[2025-03-15 22:50] LABS: Basophils # (Auto) 0.1 Thou/mm3 (0.0-0.2); Basophils % (Auto) 1 % (0-2.5); Eosinophils # (Auto) 0.4 Thou/mm3 (0.0-0.5); Eosinophils % (Auto) 5 % (0-10); Hematocrit 42.4 % (41.0-53.0); Hemoglobin 14.9 g/dL (13.5-16.0); Immature Granulocytes Auto 0.02 Thou/mm3 (0.00-0.00); Lymphocytes # (Auto) 3.2 Thou/mm3 (1.0-4.8); Lymphocytes % (Auto) 35 % (10-50); Mean Corpuscular HGB Conc 35.1 g/dl (31.0-37.0); Mean Corpuscular Hemoglobin 32.3 pg (25.0-35.0); Mean Corpuscular Volume 92 fL (80-100); Monocytes # (Auto) 0.7 Thou/mm3 (0.0-0.8); Monocytes % (Auto) 8 % (0-12); Neutrophils # (Auto) 4.5 Thou/mm3 (1.8-7.7); Neutrophils % (Auto) 51 % (37-80); Nucleated Red Blood Cell # 0.00 Thou/mm3 (0.00-0.00); Nucleated Red Blood Cell % 0 /100 WBC (0); Platelet Count 375 Thou/mm3 (140-440); RDW Standard Deviation 40.7 fL (35.1-43.9); Red Blood Count 4.62 Miln/mm3 (4.50-5.90); White Blood Count 8.9 Thou/mm3 (3.8-10.6)
[2025-03-15 23:10] LABS: Alanine Aminotransferase 28 U/L (10-49); Albumin, Serum 4.3 gm/dL (3.4-4.8); Albumin/Globulin Ratio 1.3 (1.2-2.2); Alkaline Phosphatase 105 U/L (46-116); Anion Gap 10 (7-16); Aspartate Amino Transferase 33 U/L (0-34); BUN/Creatinine Ratio 16 Ratio (12-20); Bilirubin,Total 0.5 mg/dL (0.3-1.2); Blood Urea Nitrogen 13 mg/dL (9-23); Calcium 9.6 mg/dL (8.3-10.6); Calcium (Corrected) 9.6 mg/dL (8.5-10.1); Carbon Dioxide 26.0 mMol/L (20.0-31.0); Chloride 101 mMol/L (98-107); Creatinine (Component) 0.8 mg/dL (0.6-1.3); Estimated Creatinine Clearance 125.7 mL/min (>60); Globulin 3.3 gm/dL (2.3-3.5); Glucose 115 mg/dL (74-106); Osmolality,Calculated 274 (275-295); Potassium 5.1 mMol/L (3.4-5.1); Sodium 137 mMol/L (136-145); Total Protein 7.6 gm/dL (5.7-8.2); Troponin I < 0.002 ng/mL (0.0-0.045); eGFR > 60 See Note
[2025-03-15 23:29] LABS: B-Type Natriuretic Peptide < 20 pg/mL (0-100)
[2025-03-15 23:48] VITALS: BP 108/68; PULSE 58; RESP 14; TEMP 37; O2SAT 99
[2025-03-16 00:15] VITALS: BP 114/70; PULSE 50; RESP 16; TEMP 37; O2SAT 99
[2025-03-16] MEDS: MIDAZOLAM INJ 1 MG/ML VIAL 2 ML 2 MG IVP (00:41)
[2025-03-16 00:55] LABS: Troponin I < 0.002 ng/mL (0.0-0.045)
[2025-03-16 01:00] VITALS: BP 95/60; PULSE 50; RESP 16; TEMP 37; O2SAT 99
[2025-03-16 02:00] VITALS: BP 98/65; PULSE 53; RESP 16; TEMP 37; O2SAT 99
[2025-03-16 03:19] VITALS: BP 106/73; PULSE 55; RESP 18; O2SAT 97
== END 2025-03-16 03:21 | disposition home or self-care (01) ==
PROVIDERS: Emergency Provider Emergency Medicine; PCP Family Medicine
DX: R09.89 Other specified symptoms and signs involving the circulatory and respiratory systems (principal); R00.1 Bradycardia, unspecified; I10 Essential (primary) hypertension; I25.10 Atherosclerotic heart disease of native coronary artery without angina pectoris; I25.2 Old myocardial infarction; Z95.5 Presence of coronary angioplasty implant and graft; Z87.891 Personal history of nicotine dependence
CPT/HCPCS: 36415; 71045; 80053; 83880; 84484; 85025; 87400; 87811; 93005; 96374; 99283; J2250

== ENCOUNTER 2025-03-29 11:25 | Emergency (ER) | payer MEDICAID, SELFPAY ==
[2025-03-29 11:27] VITALS: BP 130/91; PULSE 61; RESP 18; TEMP 36.7; O2SAT 97; BMI 34.8
--- NOTE | 2025-03-29 11:29 | XR_ITS ---
Examination: AP chest single view Technique one AP portable upright chest single view Date and time: March 29, 2025, 11:41 AM, comparison 03/15/2025 INDICATIONS: Chest pain today. FINDINGS: No significant cardiac enlargement No pneumonia or pulmonary edema Lordotic chest IMPRESSION: No pneumonia or pulmonary edema
--- NOTE | 2025-03-29 11:30 | EKG_ITS ---
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
--- NOTE | 2025-03-29 11:30 | EDNOTE_ITS ---
ED General RME/HPI General Chief complaint: Anxiety Stated complaint: ANXIETY Time Seen by Provider: 03/29/25 11:29 Arrival date/time: 03/29/25 11:25 CC: Chest pain HPI onset approximately 30 minutes ago center chest, EMS reports stable vital signs and route. EMS report the patient is very anxious. The patient recently had a heart attack. Patient confirms that he had stents placed at [place] after being sent here and then flown to [place]. Patient is awake alert anxious stating center site-specific pain in the distal portion of the sternum. No other complaints at this time. Patient states he took a nitro sublingual at home without relief. Related Data Home Medications ?Medication ?Instructions ?Recorded ?Confirmed amitriptyline 25 mg tablet 25 mg PO HS 11/29/23 aspirin 81 mg chewable tablet 1 tab PO Q8H PRN pain 03/03/25 nitroglycerin 0.4 mg sublingual 0.4 mg buccal Q5MIN NM N chest pain 03/03/25 03/03/25 tablet methadone 10 mg/mL oral concentrate 80 mg PO QDAY 11/2103/04/25 Previous Rx's ?Medication ?Instructions ?Recorded docusate sodium 100 mg capsule 100 mg PO BID #30 caps 01/18/25 (Colace) hydrocodone 5 mg-acetaminophen 325 1 tab PO Q6H PRN pa in (scale score 01/18/25 mg tablet 7-10) #10 tabs diazepam 5 mg tablet (Valium) 5 mg PO BID PRN anxiety #10 tabs 02/23/25 ticagrelor 90 mg tablet 90 mg PO BID 1 month #60 tab s 03/06/25 wheat dextrin 5 gram/7.4 gram oral 10 g PO HS 1 month #500 grams 03/06/25 powder Allergies Allergy/AdvReac Type Severity Reaction Status Date / Time No Known Allergies Allergy Verified 03/29/25 11:50 Review of Systems Review of Systems Narrative Review of Systems: GEN: No fever, no chills, no weight loss EYES: No discharge, no visual changes, no pain HEENT: No ear pain, no congestion, no sore throat PULM: No shortness of breath, no cough, no congestion CV: + chest pain, no dyspnea on exertion, no palpitations GI: No nausea, no vomiting, no diarrhea, no pain, no constipation : No frequency, no urgency, no dysuria MUSC/SKEL: No joint pain, no back pain SKIN: No rash PSYCH: No hallucinations, no depression HEME/LYMPH: No easy bleeding or bruising tendencies NEURO: No weakness, no headache Past Medical History Past Medical History NEUROLOGIC: Negative Neurological Disorders or Seizures CARDIAC: Positive Myocardial Infarction; Negative Cardiac Disorders or Congestive Heart Failure RESPIRATORY: Negative Chronic Obstructive Pulmonary Disease (COPD) or Asthma GASTROINTESTINAL: Positive Gastrointestinal Disorders, Hepatitis, Pancreatitis, Gall Bladder Disease and Obesity GENITOURINARY: Negative Genitourinary Disorders or Renal Disease MUSCULOSKELETAL: Positive Musculoskeletal Disorders and Fractures ENDOCRINE: Negative Endocrine Disorders, Diabetes Mellitus Type 1 or Diabetes M ellitus Type 2 HEMATOLOGIC: Negative Blood Disorders or Sickle Cell Disease PSYCHO/SOCIAL: Positive Recreational Drug Use, Depression and Anxiety OTHER HISTORY: Positive Hospitalization and Chicken Pox; Negative Autoimmune Disease, Shingles, Blood Transfusions, Blood Transfusion Reaction or Anesthesia Reactions Family History FAMILY HISTORY: Negative Family Psychiatric Problems, Family Respiratory Disorders, Family Cardiac Disorders, Family Gastrointestinal Problems, Family Cancer, Family Surgery or Family Anesthesia Reaction Surgical History SURGICAL: Positive Open Reduction Internal Fixation Social History SMOKING STATUS: Former smoker SUBSTANCE USE: former substance user and heroin ED Exam Narrative Physical exam: [General: Anxious, not in any acute distress Head normocephalic HEENT: Eyes pupils are PERRLA EOMs are intact mouth pink moist membranes uvula is midline swallow symmetrical phonation is normal all of the subsystems of HEENT are within acceptable limits Neck is supple nontender, no JVD no edema Chest equal chest rise nontender to palpation note: Chest pain is not reproducible with palpation. Respiratory: Clear to auscultation no wheezes crackles or rubs CV: Rate rhythm is regular no murmurs rubs or clicks Abdomen is distended secondary to body habitus soft nontender no masses positive bowel sounds all 4 quadrants Back: No CVA tenderness no spinous process tenderness from cervical spine thoracic and lumbar spine Skin: Intact no petechiae rash induration ulceration or crepitus Extremities: Moving all extremity against resistance cap refill less than 2 seconds neurosensory intact Neuro: Awake alert oriented x3 Glascow coma 15 no focal deficits] Course Course Course Narrative: Patient continues to have chest pain, upon reassessment at 1206. Patient is pointing directly to the sternum. Elected to give the patient IV Tylenol as the patient is on 80 mg of methadone every morning and he took it this morning. This an attempt to give him pain relief. Initial and repeat troponin are both negative I suspect this is more anxiety and rated as the patient became much more comfortable after hydroxyzine was given. Patient will be discharged home with chest pain and anxiety Quality Measures none Orders Category Date Time Status EKG (ED ONLY) *Do not use* NOW Care 03/29/25 11:30 Completed EKG (ED Only) Stat Exams 03/29/25 11:30 Draft XR chest 1V Stat Exams 03/29/25 11:29 Completed B-Type Natriuretic Peptide Stat Lab 03/29/25 12:00 Completed CBC Stat Lab 03/29/25 12:00 Completed Comprehensive Metabolic Panel Stat Lab 03/29/25 12:00 Completed Drug Screen,Urine Stat Lab 03/29/25 12:13 Completed LDH (Lactate Dehydrogenase) Stat Lab 03/29/25 12:00 Completed Magnesium Stat Lab 03/29/25 12:00 Completed Partial Thromboplastin Time Stat Lab 03/29/25 12:00 Completed Prothrombin Time with INR Stat Lab 03/29/25 12:00 Completed Troponin I Stat Lab 03/29/25 12:00 Completed Troponin I Stat Lab 03/29/25 15:26 Completed Urinalysis, C/S if Indicated Stat Lab 03/29/25 12:13 Completed Acetaminophen Ivpb [Ofirmev Inj] Med 03/29/25 12:05 Active 1,000 mg in 100 ml IV Q6HR Lidocaine 2% Viscous [Xylocaine 2% Viscous] Med 03/29/25 12:07 Discontinued 15 ml PO X1 ONE hydrOXYzine HCL [Atarax] Med 03/29/25 13:11 Discontinued 25 mg PO X1 ONE mg Hyd/Al Hyd/Alea Susp [Maalox Susp] Med 03/29/25 12:07 Discontinued 30 ml PO X1 ONE Vital Signs Vital signs: Vital Signs Temperature 98.1 F 03/29/25 11:27 Pulse Rate 61 03/29/25 11:27 Respiratory Rate 18 03/29/25 11:27 Blood Pressure 130/91 H 03/29/25 11:27 Pulse Oximetry (%) 97 03/29/25 11:27 Oxygen Delivery Method Room Air 03/29/25 11:27 Discharge Plan Plan Patient Disposition: HOME (Self Care) Patient condition on transfer: Stable Prescriptions/Referrals Prescriptions/Med Rec: No Action amitriptyline 25 mg tablet 25 mg PO HS docusate sodium [Colace] 100 mg capsule 100 mg PO BID Qty: 30 0RF hydrocodone-acetaminophen 5-325 mg tablet 1 tab PO Q6H MDD 4 PRN (Reason: pain (scale score 7-10)) Qty: 10 0RF nitroglycerin 0.4 mg tablet, sublingual 0.4 mg BUCCAL Q5MIN PRN (Reason: chest pain) aspirin 81 mg tablet,chewable 1 tab PO Q8H PRN (Reason: pain) methadone 10 mg/mL concentrate 80 mg PO QDAY Patient Comments: [facility] [place] ticagrelor 90 mg tablet 90 mg PO BID 30 Days Qty: 60 0RF wheat dextrin 5 gram/7.4 gram powder 10 g PO HS 30 Days Qty: 500 0RF diazepam [Valium] 5 mg tablet 5 mg PO BID PRN (Reason: anxiety) Qty: 10 0RF Referrals: No Primary/Family,Physician [Primary Care Provider] - In 1 week Problem List Clinical Impression: Chest pain, Anxiety Patient/Caregiver Discharge Instructions Education Materials: ED Anxiety Reaction, ED Chest Pain, Uncertain Cause Print Language: Estonian Stand Alone Forms: [employer] Award Info., Patient Portal Info Letter MDM Clinical Information Provided by: patient and EMS Medical [facility] and [facility] Medical Records additional comments: Review the medical record show the patient was transported for a STEMI in beginning of January, beginning of February 2025 the patient was admitted for pneumonia. Meds/Rx considered, not ordered None Labs/Rad/Tests considered, not ordered None Chronic Illness/Social Conditions which may negatively complicate care or outcome(s)-explain: ETOH/drugs/substance abuse and CHF/CAD/Cardiac illness Explain: STEMI in January 2025 EKG Interpretation EKG #1: EKG Interpretation: EKG performed at 1157 shows a ventricular rate of 5 8 NM interval 182 QRS of 8 5 QTc of 433 is a sinus bradycardia. Baseline artifact in leads I, III, aVL and II as well as V4 through V6. When compared to an old EKG morphology is unchanged low voltage. Repeat EKG performed at 1206 shows a ventricular rate of 5 7 NM interval 172 QRS of 96 QTc of 438 sinus bradycardia no artifact. Labs Labs: interpreted by tx Lab(s) Interpretation(s): CBC shows no acute leukocytosis anemia thrombocytopenia Coags within acceptable limits CMP shows no significant electrolyte imbalances other than a glucose of 145, no transaminitis or T. bili elevation. Alk phos at 123. Troponin is undetectable BNP is less than 20. Imaging Imaging interpretation: interpreted by me Imaging Interpretation(s): Chest x-ray is unremarkable. Medication Administration(s) Medication Administration History Acetaminophen (Ofirmev Inj) 1,000 mg in 100 mls @ 250 mls/hr IV Q6HR SAYRA Stop: 03/30/25 06:23 Last Infusion: 03/29/25 13:12 Dose: Infused Documented By: Admin: 03/29/25 12:48 Dose: 250 mls/hr Documented By: VRS Discontinued Medications Al Hydrox/Mg Hydrox/Simethicone (Mg Hyd/Al Hyd/Alea (Maalox Reg) Susp 30 Ml Udc) 30 ml PO X1 ONE Stop: 03/29/25 12:08 Last Admin: 03/29/25 12:32 Dose: 30 ml Documented By: MARTHA Hydroxyzine HCl (Hydroxyzine Hcl 25 Mg Tablet) 25 mg PO X1 ONE Stop: 03/29/25 13:12 Last Admin: 03/29/25 13:40 Dose: 25 mg Documented By: EF Lidocaine HCl (Lidocaine Viscous 2% 15 Ml Udc) 15 ml PO X1 ONE Stop: 03/29/25 12:08 Last Admin: 03/29/25 12:32 Dose: 15 ml Documented By: JESSICAS
[2025-03-29 11:46] VITALS: PULSE 82; RESP 16; O2SAT 98
[2025-03-29 12:18] LABS: Basophils # (Auto) 0.1 Thou/mm3 (0.0-0.2); Basophils % (Auto) 1 % (0-2.5); Eosinophils # (Auto) 0.4 Thou/mm3 (0.0-0.5); Eosinophils % (Auto) 6 % (0-10); Hematocrit 43.4 % (41.0-53.0); Hemoglobin 14.9 g/dL (13.5-16.0); Immature Granulocytes Auto 0.02 Thou/mm3 (0.00-0.00); Lymphocytes # (Auto) 2.3 Thou/mm3 (1.0-4.8); Lymphocytes % (Auto) 35 % (10-50); Mean Corpuscular HGB Conc 34.3 g/dl (31.0-37.0); Mean Corpuscular Hemoglobin 31.8 pg (25.0-35.0); Mean Corpuscular Volume 93 fL (80-100); Monocytes # (Auto) 0.7 Thou/mm3 (0.0-0.8); Monocytes % (Auto) 10 % (0-12); Neutrophils # (Auto) 3.2 Thou/mm3 (1.8-7.7); Neutrophils % (Auto) 48 % (37-80); Nucleated Red Blood Cell # 0.00 Thou/mm3 (0.00-0.00); Nucleated Red Blood Cell % 0 /100 WBC (0); Platelet Count 302 Thou/mm3 (140-440); RDW Standard Deviation 41.6 fL (35.1-43.9); Red Blood Count 4.69 Miln/mm3 (4.50-5.90); White Blood Count 6.7 Thou/mm3 (3.8-10.6)
[2025-03-29] MEDS: MG HYD/AL HYD/SIME (Maalox Reg) SUSP 30 ML UDC PO (12:32)
[2025-03-29] MEDS: LIDOCAINE VISCOUS 2% 15 ML UDC PO (12:32)
[2025-03-29 12:42] LABS: B-Type Natriuretic Peptide < 20 pg/mL (0-100)
[2025-03-29 12:43] LABS: INR 1.0 (0.9-1.3); Partial Thromboplastin Time 28.0 Seconds (22.0-36.0); Prothrombin Time 10.5 Seconds (9.0-12.2)
[2025-03-29 12:46] LABS: Alanine Aminotransferase 38 U/L (10-49); Albumin, Serum 4.2 gm/dL (3.4-4.8); Albumin/Globulin Ratio 1.4 (1.2-2.2); Alkaline Phosphatase 123 U/L (46-116); Anion Gap 7 (7-16); Aspartate Amino Transferase 31 U/L (0-34); BUN/Creatinine Ratio 11 Ratio (12-20); Bilirubin,Total 0.7 mg/dL (0.3-1.2); Blood Urea Nitrogen 10 mg/dL (9-23); Calcium 9.7 mg/dL (8.3-10.6); Calcium (Corrected) 9.7 mg/dL (8.5-10.1); Carbon Dioxide 25.7 mMol/L (20.0-31.0); Chloride 104 mMol/L (98-107); Creatinine (Component) 0.9 mg/dL (0.6-1.3); Estimated Creatinine Clearance 111.8 mL/min (>60); Globulin 3.0 gm/dL (2.3-3.5); Glucose 145 mg/dL (74-106); LDH (Lactate Dehydrogenase) 180 U/L (120-246); Magnesium 1.9 mg/dL (1.6-2.6); Osmolality,Calculated 275 (275-295); Potassium 4.0 mMol/L (3.4-5.1); Sodium 137 mMol/L (136-145); Total Protein 7.2 gm/dL (5.7-8.2); Troponin I < 0.002 ng/mL (0.0-0.045); eGFR > 60 See Note
[2025-03-29] MEDS: ACETAMINOPHEN IVPB 1,000 MG/100 ML VIAL 250 MG IV (12:48)
[2025-03-29 13:36] VITALS: BP 105/74; PULSE 54; RESP 14; O2SAT 95
[2025-03-29 13:43] LABS: Collection Type, Urine Clean Catch; Squamous Epithelial Cell,Urine 0 /hpf (0-5)
[2025-03-29 13:46] VITALS: BP 105/74; PULSE 56; RESP 19; TEMP 36.4; O2SAT 94
[2025-03-29 14:07] LABS: Bilirubin,Urine Negative (Negative); Blood,Urine Negative (Negative); Clarity,Urine Clear (Clear/Hazy); Color,Urine Lt-Yellow (Lt Yel-Yel); Culture Indicated,Urine Not Indicated; Glucose, Urine Negative (Negative); Ketones,Urine Negative (Negative); Leukocyte Esterase,Urine Negative (Negative); Nitrite,Urine Negative (Negative); PH,Urine 6.5 (5.0-7.0); Protein,Urine Negative (Neg - Trace); RBC,Urine 1 /hpf (0-3); Specific Gravity,Urine 1.010 (1.001-1.035); Urobilinogen,Urine Negative mg/dL (0.0-1.0); WBC,Urine 1 /hpf (0-5)
[2025-03-29 14:11] LABS: Amphetamine/Methamp Scrn,U Negative (Negative); Barbiturate Screen,Urine Negative (Negative); Benzodiazepines Screen,Urine Negative (Negative); Benzoylecgonine Screen, Ur Negative (Negative); Fentanyl Screen,Urine Negative (Negative); Opiate Screen,Urine Negative (Negative); THC Screen,Urine Negative (Negative)
[2025-03-29 15:00] VITALS: BP 106/74; PULSE 53; RESP 17; TEMP 36.4; O2SAT 91
[2025-03-29 16:00] LABS: Troponin I < 0.002 ng/mL (0.0-0.045)
[2025-03-29 17:00] VITALS: BP 118/78; PULSE 55; RESP 14; O2SAT 95
== END 2025-03-29 17:06 | disposition home or self-care (01) ==
PROVIDERS: Registered Nurse General Practice; Emergency Provider Family Medicine
DX: F41.9 Anxiety disorder, unspecified (principal); R07.9 Chest pain, unspecified; R00.1 Bradycardia, unspecified; I25.2 Old myocardial infarction; Z87.891 Personal history of nicotine dependence
CPT/HCPCS: 36415; 71045; 80053; 80307; 81001; 83615; 83735; 83880; 84484; 85025; 85610; 85730; 93005; 96365; 99284; J0131; J3490; A9270